=== PATIENT | male | born 1980 | race Caucasian/White ===

== ENCOUNTER → 2017-03-17 16:29 | Outpatient (CLI) | payer BC ==
[2012-03-10 02:51] VITALS: BMI 45.4
== END | disposition home or self-care (01) ==
LOC: D.MRI 16:29
DX: M54.16 Radiculopathy, lumbar region (principal)

== ENCOUNTER 2017-05-03 22:12 | Emergency (ER) | payer MEDICAID ==
[2012-03-10 02:51] VITALS: BMI 45.4
[2017-05-03 22:48] LABS: BASOPHILS 0.3 % (0-2); HEMATOCRIT 38.1 % (42.0-54.0); HEMOGLOBIN 13.5 g/dL (13.5-17.5); IMMATURE GRANULOCYTES 0.2 % (0-5); LYMPHOCYTES 21.7 % (15-50); MCH 28.8 pg (26.0-34.0); MCHC 35.4 g/dL (31.0-37.0); MCV 81.4 fL (80.0-100.0); MEAN PLATELET VOLUME 10.5 fL (7.4-10.4); MONOCYTES 6.1 % (2-11); NEUTROPHILS 69.7 % (40-80); RBC 4.68 10x6/uL (4.20-6.10); RDW 13.3 % (11.5-14.5); WBC 5.9 10x3/uL (4.8-10.8)
[2017-05-03 22:49] LABS: PLATELET COUNT 249 10x3/uL (130-400)
[2017-05-03 23:00] LABS: ALBUMIN 3.6 g/dL (3.4-5.0); ANION GAP 16.6 mmol/L (8-16); BILIRUBIN - TOTAL 0.53 mg/dL (0.2-1.3); CALCIUM 8.7 mg/dL (8.5-10.1); CARBON DIOXIDE 26.5 mmol/L (21.0-32.0); CREATININE - SERUM 1.3 mg/dL (0.6-1.3); POTASSIUM - SERUM 3.1 mmol/L (3.5-5.1)
[2017-05-03 23:52] LABS: APPEARANCE CLEAR (CLEAR); BILIRUBIN NEGATIVE (NEGATIVE); COLOR YELLOW (YELLOW); GLUCOSE NEGATIVE (NEGATIVE); KETONE NEGATIVE (NEGATIVE); LEUKOCYTE ESTERASE TRACE (NEGATIVE); NITRITE NEGATIVE (NEGATIVE); PROTEIN TRACE mg/dL (NEGATIVE); UROBILINOGEN NORMAL (NORMAL)
[2017-05-03 23:54] LABS: BACTERIA FEW /hpf (NONE SEEN); EPITHELIAL CELLS 0-5 /hpf (0-5); RED CELLS - URINE 0-5 /hpf (0-5); WHITE CELLS - URINE 0-5 /hpf (0-5)
[2017-05-03 23:55] LABS: MUCUS >1+ /lpf (NONE SEEN)
== END 2017-05-04 00:12 | disposition home or self-care (01) ==
LOC: D.ER 22:12
PROVIDERS: Family Medicine; Nurse Practitioner Family
DX: R10.9 Unspecified abdominal pain (principal); K59.00 Constipation, unspecified; K50.90 Crohn's disease, unspecified, without complications; F17.200 Nicotine dependence, unspecified, uncomplicated

== ENCOUNTER 2019-03-05 17:17 | Inpatient (IN) | payer MEDICAID ==
[~2019-03-05] VITALS: Ht 180.3 cm; Wt 129.1 kg
--- NOTE | ~2019-03-05 | HEMODYNAMI ---
PATIENT:WM CABAN MEDICAL RECORD: [id number] : 82 [facility] [id number] ADMISSION DATE: 03/05/19 Generatedon:03/07/201910:50 Patient name: WM CABAN Patient #: [id number] SSN : : 1980 Date of study: 03/07/2019 Page: Of Hemodynamic Procedure Report Patient Data Patient Demographics Procedure consent was obtained First Name: WM Gender: Male Last Name: ARSH : 1980 Middle Initial: A Age: 38 year(s) Patient #: [id number] Race: Unknown Additional ID: [id number] Contact details Address: [place] [address] State: [place] City: [facility] Zip code: [address] Admission Admission Data Admission Date: 03/05/2019 Admission Time: 20:57 Room #: [facility] Procedure Procedure Types Cath Procedure Diagnostic Procedure LHC LHC w/Coronaries Procedure Description Procedure Date Procedure Date: 03/07/2019 Procedure Start Time: 10:32 Procedure End Time: 10:47 Procedure Staff Name Function Gilmar Dhillon MD Performing Physician Yasmin Pennington RT Monitor Linda Multani RT Scrub Carolyn Swartz RN Nurse Procedure Data Cath Procedure Fluoroscopy Diagnostic fluoroscopy Total fluoroscopy Time: 1.8 time: 1.8 min min Diagnostic fluoroscopy Total fluoroscopy dose: 581 dose: 581 mGy mGy Contrast Material Contrast Material Type Amount (ml) Isovue 300 51 Entry Location Entry Primary Successful Side Size Upsize Upsize Entry Closure Succes sful Closure Location (Fr) 1 (Fr) 2 (Fr) Remarks Device Remarks Femoral Right 5 Fr Exoseal artery Femoral Right 5 Fr vein Estimated blood loss: 5 ml Diagnostic catheters Device Type Used For End Catheter Placement MULTIPACK JL 4.0 5Fr Left Coronary catheter Angiography MULTIPACK 3DRC 5Fr Right Coronary catheter Angiography MULTIPACK Pigtail 5 Fr LV Angiography catheter Procedure Complications No complications Procedure Medications Medication Administration Route Dosage 0.9% NaCl I.V. 100 ml/hr Oxygen etCO2 Nasal cannula 2 l/min Lidocaine 2% added to field 20 Heparin Flush Bag added to field 2 bags (1000units/500ml NS) Versed I.V. 2 mg Fentanyl I.V. 50 mcg Versed I.V. 2 mg Fentanyl I.V. 50 mcg Hemodynamics Rest Heart Rate: 118 (bpm) Pressure Samples Time Site Value (mmHg) Purpose Heart Use Rate(bpm) 10:41 LV 112/24,44 Snapshot 123 Gradients Valve Time Site Site Mean SEP/DFP Peak To Heart Use 1 2 (mmHg) (sec/min) Peak Rate (mmHg) (bpm) Aortic 10:42 LV AO 126 Snapshots Pre Cath Intra NCS Post Cath Vital Signs Time Heart Resp SPO2 etCO2 NIBP (mmHg) Rhythm Pain Sedation Rate (ipm) (%) (mmHg) Status Level (bpm) 10:24:51 120 26 100 26.2 124/88(109) NSR 0 (11) 10(A) , No pain 10:29:09 114 18 100 36.7 138/98(116) NSR 0 (11) 10(A) , No pain 10:33:33 113 17 98 35.9 137/96(110) NSR 0 (11) 10(A) , No pain 10:37:57 113 13 97 41.2 145/116(133) NSR 0 (11) 9(A) , No pain 10:43:37 123 22 98 38.9 145/116(132) NSR 0 (11) 9(A) , No pain 10:47:59 126 21 97 39.7 134/111(133) NSR 0 (11) 10(A) , No pain Medications Time Medication Route Dose Verified Delivered Reason Notes Eff ectiveness by by 10:22:31 0.9% NaCl I.V. 100 Gilmar Carolyn used for ml/hr Alejo Swartz computer aided design technician 10:22:37 Oxygen etCO2 2 Gilmar Carolyn used for Nasal l/min Alejo Swartz procedure cannula RN 10:22:51 Lidocaine 2% added 20ml Gilmar Gilmar for local to vial Alejo Dhillon MD anesthetic field 10:22:57 Heparin Flush added 2 Gilmar Gilmar used for Bag to bags Alejo Dhillon MD procedure (1000units/500ml field NS) 10:28:58 Versed I.V. 2 mg Gilmar Carolyn for Alejo Swartz sedation RN 10:29:04 Fentanyl I.V. 50 Gilmar Carolyn for mcg Alejo Swartz sedation RN 10:34:19 Versed I.V. 2 mg Gilmar Carolyn for Alejo Swartz sedation RN 10:34:23 Fentanyl I.V. 50 Gilmar Carolyn for mcg Alejo Swartz sedation administration manager Log Time Note 9:58:18 Informed consent obtained and on chart 9:58:24 Diagnostic Cath Status : Elective 9:59:13 Carolyn Swartz RN sent for patient. Start room use. 9:59:14 Time tracking: Regular hours (M-F 7:00 - 5:00) 9:59:19 Plan of Care:Hemodynamics will remain stable., Cardiac rhythm will remain stable., Comfort level will be maintained., Respiratory function will remain adequate., Patient/ family verbilizes understanding of procedure., Procedure tolerated without complication., Recovers from procedure without complications.. 10:15:54 Patient received from Med II to CCL 1 Alert and oriented. Tansferred to table in Supine position. 10:15:55 Warm blankets applied, and orestes hugger turned on for patient comfort. 10:15:56 Correct patient and procedure confirmed by team. 10:15:56 ECG and BP/O2 sat monitors applied to patient. 10:22:22 Vital chart was started 10:22:31 0.9% NaCl 100 ml/hr I.V. was administered by Carolyn Swartz RN; used for procedure; 10:22:37 Oxygen 2 l/min etCO2 Nasal cannula was administered by Carolyn Swartz RN; used for procedure; 10:22:51 Lidocaine 2% 20ml vial added to field was administered by Gilmar Dhillon MD; for local anesthetic; 10:22:57 Heparin Flush Bag (1000units/500ml NS) 2 bags added to field was administered by Gilmar Dhillon MD; used for procedure; 10:23:11 Baseline sample Acquired. 10:24:39 Rhythm: sinus tachycardia 10:24:41 Full Disclosure recording started 10:24:59 H&P Date Dictated: 03/07/2019 New H&P dictated by physician.. 10:25:03 Pre-procedure instructions explained to patient. 10:25:03 Pre-op teaching completed and patient verbalized understanding. 10:25:12 Family in patients room. 10:25:13 Patient NPO since Midnight. 10:25:21 Is the patient allergic to Iodine/contrast media? No. 10:25:22 Was the patient premedicated? No 10:25:57 Is patient on blood thinner?No 10:25:59 Patient diabetic? Unknown. 10:26:03 Previous problem with sedation/anesthesia? No ? 10:26:05 Snore? Yes 10:26:18 Sleep apnea? Yes 10:26:19 Deviated septum? No 10:26:20 Opens mouth fully? Yes 10:26:20 Sticks out tongue? Yes 10:26:24 Airway obstruction? No ? 10:26:27 Dentures? No ? 10:26:34 Pre procedure: right dorsailis pedis pulse 2+ Normal; easily identifiable; not easily obliterated 10:26:36 Pre procedure: left dorsailis pedis pulse 2+ Normal; easily identifiable; not easily obliterated 10:26:46 Patient pain scale 0/10 ?. 10:27:15 IV patent on arrival in left forearm with 0.9% NaCl at [facility]. 10:27:18 Lab results completed and on chart. 10:27:23 Right groin area was prepped with chlora-prep and draped in sterile fashion 10:27:24 Alarms reviewed by R. N. 10:27:24 Sharps counted by scrub and verified by R.N. 10:27:53 Physician arrived 10:27:53 --------ALL STOP TIME OUT------ 10:27:54 Final Timeout: patient, procedure, and site verified with staff and physician. All members of the team are in agreement. 10:27:56 Right groin site verified by team. 10:27:58 Maximum allowable Isovue 300 dose 300ml. Physician notified. (300ml for normal creatinines. For patients with creatinine of 1.7 or higher multiply weight(kg) x 5 divided by creatinine.) 10:28:02 Fire Safety Assessment: A--An alcohol-based skin anteseptic being used preoperatively., C--Open oxygen or nitrous oxide is being used., D--An ESU, laser, or fiber-optic light is being used. 10:28:06 Physical assessment completed. ASA score P 2 - A patient with mild systemic disease as per Gilmar Dhillon MD. 10:28:09 Sedation plan: IV Moderate Sedation Medication:Versed, Fentanyl 10:28:46 Use device set Femoral Dx 10:28:47 ACIST Syringe (63311) opened to sterile field. 10:28:48 Bag Decanter (2002S) opened to sterile field. 10:28:48 Medline Cath Pack ([id number]) opened to sterile field. 10:28:49 DIAGNOSTIC WIRE .035 260cm J wire (905279) opened to sterile field. 10:28:50 ACIST Hand Control (72450) opened to sterile field. 10:28:50 ACIST Manifold (19977) opened to sterile field. 10:28:51 DIAGNOSTIC Multipack 5Fr catheter set ([id number]) opened to sterile field. 10:28:51 Tegaderm 4 x 4 (1626W) opened to sterile field. 10:28:53 SHEATH 5FR Driggs (YKD017) opened to sterile field. 10:28:58 Versed 2 mg I.V. was administered by Carolyn Swartz RN; for sedation; 10:29:04 Fentanyl 50 mcg I.V. was administered by Carolyn Swartz RN; for sedation; 10:32:22 Procedure started. 10:32:29 Local anesthetic to right femoral artery with Lidocaine 2% by Gilmar Dhillon MD.INITIAL ACCESS ONLY 10:32:44 A 5 Fr sheath was inserted into the Right Femoral artery 10:34:19 Versed 2 mg I.V. was administered by Carolyn Swartz RN; for sedation; 10:34:23 Fentanyl 50 mcg I.V. was administered by Carolyn Swartz RN; for sedation; 10:35:18 SHEATH 5FR Driggs (WPV429) opened to sterile field. 10:35:38 A 5 Fr sheath was inserted into the Right Femoral vein 10:36:47 A MULTIPACK JL 4.0 5Fr catheter was advanced over the wire and used for Left Coronary Angiography. 10:38:11 LCA angiography performed. 10:38:15 Injector settings: Ml/sec: 3, Volume: 6, 10:38:56 Catheter removed. 10:39:05 A MULTIPACK 3DRC 5Fr catheter was advanced over the wire and used for Right Coronary Angiography. 10:40:30 RCA angiography performed. 10:40:33 Injector settings: Ml/sec: 3, Volume: 6, 10:40:44 Catheter removed. 10:40:51 A MULTIPACK Pigtail 5 Fr catheter was advanced over the wire and used for LV Angiography. 10:41:57 LV hemodynamics recorded. 10:42:31 LV gram done using RODRÍGUEZ 10:42:37 Injector settings: Ml/sec: 45, Volume: ?, 10:42:39 Injector settings: Ml/sec: 5, Volume: 15, 10:42:47 EF : 10 % 10:42:51 Catheter removed. 10:43:05 EXOSEAL 5Fr (EX500) opened to sterile field. 10:44:08 Sheath removed intact; hemostasis achieved with Exoseal to the Right Femoral artery. 10:44:59 Procedure ended.(Physican Out) 10:45:49 Fluoroscopy time 01.80 minutes. 10:45:55 Fluoroscopy dose: 581 mGy 10:45:55 Flurop Dose total: 581 10:45:59 Contrast amount:Isovue 300 51ml. 10:46:02 Sharps counted by scrub and verified by R.N. 10:46:03 Insertion/operative site no bleeding no hematoma. 10:46:07 Post-op/insertion site Right Femoral artery dressed using a 4 x 4 and Tegaderm. 10:46:11 Post Procedure Pulses reassessed and unchanged 10:46:14 Post procedure rhythm: unchanged. 10:46:17 Estimated blood loss: 5 ml 10:46:19 Post procedure instruction explained to patient.Patient verbalizes understanding. 10:46:20 Patient needs reinforcement of post procedure teaching. 10:46:29 Procedure and supply charges have been captured, reviewed, submitted and are correct. 10:47:09 Procedure Complication : No complications 10:47:15 Vital chart was stopped 10:47:16 See physician's report for complete and final results. 10:47:21 Report given to [facility]. 10:47:23 Patient transfered to [facility] with Stretcher. 10:47:25 Procedure ended. 10:47:25 Full Disclosure recording stopped 10:47:28 End room use (Document Last) Device Usage Item Name Manufacture Quantity Catalog Hospital Part Current Minimal L ot# / Number Charge Number Stock Stock Serial# Code ACIST Acist 1 10471 072842 085639 727625 20 Syringe Medical (48592) Systems Inc Bag Microtek 1 2001S 852753 77407 878499 5 Decanter Medical Inc. () Medline Medline 1 [id number] 379450 05076 940393 5 Cath Pack ([id number]) DIAGNOSTIC St Edd 1 527022 583093 598361 427954 30 WIRE .035 260cm J wire (473338) ACIST Hand Acist 1 02070 166808 190571 417918 5 Control Medical (08606) Systems Inc ACIST Acist 1 92928 165112 402988 834029 5 Manifold Medical (00125) Systems Inc DIAGNOSTIC Cardinal 1 [id number] 660646 76271 568651 30 Multipack Health 5Fr catheter set (GH0972) Tegaderm 4 3M 1 1626W 159683 630363 020573 5 x 4 (1626W) SHEATH 5FR Terumo 2 [id number] 340172 736839 685939 5 Driggs (FMU960) MULTIPACK Cardinal 1 577896 5 JL 4.0 5Fr Health catheter MULTIPACK Cardinal 1 084526 5 3DRC 5Fr Health catheter MULTIPACK Cardinal 1 196083 5 Pigtail 5 Health Fr catheter EXOSEAL 5Fr Cardinal 1 EX500 886620 377914 572382 10 (EX500) Health Signature Audit [place] Stage Time Signature Unsigned Intra-Procedure 03/07/2019 Yasmin Pennington 10:50:24 AM RT(R) Signatures Monitor : Yasmin Pennington RT Signature : Date : Time : [facility] [address] [place] [address]
[2019-03-05 17:43] VITALS: BP 124/77
[2019-03-05 18:16] LABS: BASOPHILS 0.6 % (0-2); EOSINOPHILS 3.4 % (0-7); HEMATOCRIT 33.4 % (42.0-54.0); HEMOGLOBIN 11.1 g/dL (13.5-17.5); IMMATURE GRANULOCYTES 0.5 % (0-5); LYMPHOCYTES 25.4 % (15-50); MCH 25.1 pg (26.0-34.0); MCHC 33.2 g/dL (31.0-37.0); MCV 75.4 fL (80.0-100.0); MEAN PLATELET VOLUME 9.7 fL (7.4-10.4); MONOCYTES 7.4 % (2-11); NEUTROPHILS 62.7 % (40-80); PLATELET COUNT 289 10x3/uL (130-400); RBC 4.43 10x6/uL (4.20-6.10); RDW 13.8 % (11.5-14.5); WBC 8.4 10x3/uL (4.8-10.8)
[2019-03-05 18:35] LABS: ALBUMIN 2.8 g/dL (3.4-5.0); ANION GAP 15.5 mmol/L (8-16); BILIRUBIN - TOTAL 1.03 mg/dL (0.2-1.3); CALCIUM 7.9 mg/dL (8.5-10.1); CARBON DIOXIDE 23.7 mmol/L (21.0-32.0); CREATININE - SERUM 1.3 mg/dL (0.6-1.3); POTASSIUM - SERUM 3.2 mmol/L (3.5-5.1); PROTEIN - SERUM 6.4 g/dL (6.4-8.2)
[2019-03-05 18:48] LABS: MAGNESIUM - SERUM 1.1 mg/dL (1.8-2.4); THYROID STIMULATING HORMONE 2.52 uIU/mL (0.36-3.74)
--- NOTE | 2019-03-05 19:01 | NUR ---
HAND OFF REPORT GIVEN TO ANGELO WHITTAKER
[2019-03-05 19:08] LABS: TROPONIN-I 0.267 ng/mL (0.000-0.060)
[2019-03-05 20:18] LABS: APPEARANCE CLEAR (CLEAR); BILIRUBIN NEGATIVE (NEGATIVE); COLOR YELLOW (YELLOW); GLUCOSE NEGATIVE (NEGATIVE); KETONE NEGATIVE (NEGATIVE); NITRITE NEGATIVE (NEGATIVE); PROTEIN NEGATIVE (NEGATIVE); SPECIFIC GRAVITY 1.015 (1.005-1.020); UROBILINOGEN NORMAL (NORMAL)
[2019-03-05 20:19] LABS: BACTERIA FEW /hpf (NONE SEEN)
[2019-03-05 20:27] LABS: UDS - AMPHET POSITIVE QUAL (NEGATIVE); UDS - BARB NEGATIVE QUAL (NEGATIVE); UDS - BENZO NEGATIVE QUAL (NEGATIVE); UDS - COCAINE POSITIVE QUAL (NEGATIVE); UDS - OPIATE NEGATIVE QUAL (NEGATIVE); UDS - PCP NEGATIVE QUAL (NEGATIVE); UDS - THC NEGATIVE QUAL (NEGATIVE)
[2019-03-05 20:33] VITALS: BP 118/73
--- NOTE | 2019-03-05 20:43 | NUR ---
PT RESTING, FAMILY AT BEDSIDE. PT RECIEVING ORDERED MAG/KCL FLUIDS. PT HAS NO NEEDS AT THIS TIME. RESPIRATIONS EVEN AND UNLABORED. WILL CONTINUE TO MONITOR.
--- NOTE | 2019-03-05 22:45 | NUR ---
RECEIVED PT VIA STRECTHER BY ER STAFF. PT IS ALERTX4. FAMILY AT BEDSIDE. NO ACUTE S/S OF DISTRESS NOTED. BED IN LOW POSITION WITH CALL LIGHT IN REACH. WILL CONTINUE TO MONITOR PT AND FOLLOW PLAN OF CARE.
[2019-03-06] VITALS (7 sets, daily range): BP systolic 113–138; BP diastolic 66–77
--- NOTE | 2019-03-06 03:46 | NUR ---
I have reviewed this patient and I concur with the Shift Assessment completed by the Licensed Practical Nurse today this shift.
[2019-03-06 07:28] LABS: BASOPHILS 0.6 % (0-2); EOSINOPHILS 3.6 % (0-7); HEMATOCRIT 37.7 % (42.0-54.0); HEMOGLOBIN 12.3 g/dL (13.5-17.5); IMMATURE GRANULOCYTES 0.3 % (0-5); LYMPHOCYTES 25.6 % (15-50); MCH 25.1 pg (26.0-34.0); MCHC 32.6 g/dL (31.0-37.0); MCV 76.8 fL (80.0-100.0); MEAN PLATELET VOLUME 9.8 fL (7.4-10.4); MONOCYTES 5.1 % (2-11); NEUTROPHILS 64.8 % (40-80); PLATELET COUNT 334 10x3/uL (130-400); RBC 4.91 10x6/uL (4.20-6.10); RDW 14.1 % (11.5-14.5); WBC 9.7 10x3/uL (4.8-10.8)
[2019-03-06 08:05] LABS: CALC OSMOLALITY 276 mosm/kg (275-300); CALCIUM 7.6 mg/dL (8.5-10.1); CHLORIDE - SERUM 104 mmol/L (98-107); CKMB 5.4 U/L (0.0-3.6); CREATINE KINASE 324 UL (21-232); CREATININE - SERUM 1.2 mg/dL (0.6-1.3); GLUCOSE 124 mg/dL (74-106); MAGNESIUM - SERUM 2.8 mg/dL (1.8-2.4); POTASSIUM - SERUM 3.6 mmol/L (3.5-5.1); PRO BNP 2074 pg/mL (0-125); SODIUM 138 mmol/L (136-145); TROPONIN-I 0.269 ng/mL (0.000-0.060); UREA NITROGEN 13 mg/dL (7-18); eGFR NON AFRICAN AMERICAN 72 mL/min (90-120)
--- NOTE | 2019-03-06 09:42 | NUR ---
PT RESTING IN BED. NO SIGNS OF DISTRESS. IT TO LEFT AC PATENT NO REDNESS OR TENDERNESS. ON TELEMETRY 113. DENIES ANY NEED AT THIS TIME. CALL LIGHT IN REACH. BED LOW POSITION. FAMILY AT BEDSIDE AT THIS TIME.
--- NOTE | 2019-03-06 10:18 | NUR ---
I have reviewed this patient and I concur with the Shift Assessment completed by the Licensed Practical Nurse today this shift.
--- NOTE | 2019-03-06 19:22 | NUR ---
PT LAYING IN BED SNORING. KCL 40MEQ +NS AND MAG 4GM INFUSING AT 250 ORDERED. NURSE UNHOOKED PT. MORNING LAB VALUES AT 0719 MAGNESIUM 2.8 AND POTASSIUM 3.6 PT PRO BNP IS 2073 HISTORY OF CHF. PT HAS HAD FLUIDS INFUSING ALL DAY. NURSE S/L PT, WILL TELL KYLAH REES WHEN SPEAKING WITH HER. PT DENIES ANY NEEDS. NO S/S OF DISTRESS. WILL CPOC
--- NOTE | 2019-03-06 20:03 | NUR ---
SPOKE WITH KYLAH REGARDING FLUIDS THAT HAVE BEEN INFUSING ALL DAY. KYLAH STATED D/C FLUIDS AND ORDER PRO BNP, MAG AND BMP PLACED ORDERS
--- NOTE | 2019-03-06 22:33 | NUR ---
EDUCATED PT IN LASIX. PT VERBALIZED UNDERSTANDING. SPOKE WITH PT ABOUT CHF, AND THE POTASSIUM AND MAG NEEDING TO BE RECHECKED. PT VERBLAIZED UNDERSTANDING. PT STATES WITH HIS CHRONNS HE ALWAYS HAS A BM AFTER HE EATS AND HAS NOT HAD A BM SINCE ADMIT. BOWEL SOUNDS ACTIVE. PT HAS NO S/S OF DISTRESS. WILL CPOC
--- NOTE | 2019-03-07 00:05 | NUR ---
PT ASLEEP. RESP UNLABORED, RATE UNEVEN. 2L O2 NC. PT SNORING LOUDLY WITH MOUTH OPEN. NO S/S OF DISTRESS. REMOVED DRINKS FROM BEDSIDE. BEDLOW AND CALL LIGHT IN REACH. WILL CPOC
[2019-03-07 00:39] LABS: ANION GAP 11.9 mmol/L (8-16); CALCIUM 7.6 mg/dL (8.5-10.1); CARBON DIOXIDE 25.9 mmol/L (21.0-32.0); CREATININE - SERUM 1.2 mg/dL (0.6-1.3); MAGNESIUM - SERUM 2.4 mg/dL (1.8-2.4); POTASSIUM - SERUM 3.8 mmol/L (3.5-5.1)
[2019-03-07 05:20] VITALS: BP 120/66
[2019-03-07 05:53] LABS: BASOPHILS 0.6 % (0-2); EOSINOPHILS 3.8 % (0-7); HEMATOCRIT 38.5 % (42.0-54.0); HEMOGLOBIN 12.6 g/dL (13.5-17.5); IMMATURE GRANULOCYTES 0.7 % (0-5); LYMPHOCYTES 21.4 % (15-50); MCHC 32.7 g/dL (31.0-37.0); MCV 76.4 fL (80.0-100.0); MEAN PLATELET VOLUME 10.1 fL (7.4-10.4); MONOCYTES 7.1 % (2-11); NEUTROPHILS 66.4 % (40-80); PLATELET COUNT 322 10x3/uL (130-400); RBC 5.04 10x6/uL (4.20-6.10); RDW 14.1 % (11.5-14.5)
[2019-03-07 06:11] LABS: ALBUMIN 2.9 g/dL (3.4-5.0); ANION GAP 14.3 mmol/L (8-16); BILIRUBIN - TOTAL 0.77 mg/dL (0.2-1.3); CALCIUM 7.7 mg/dL (8.5-10.1); CARBON DIOXIDE 27.4 mmol/L (21.0-32.0); CREATININE - SERUM 1.2 mg/dL (0.6-1.3); MAGNESIUM - SERUM 2.3 mg/dL (1.8-2.4); POTASSIUM - SERUM 3.7 mmol/L (3.5-5.1); PROTEIN - SERUM 7.2 g/dL (6.4-8.2)
--- NOTE | 2019-03-07 06:33 | NUR ---
PT HAS BEEN NPO SINCE MIDNIGHT. PT HAS NO S/S OF DISTRESS. DECLINES LASIX. DOESNT WANT TO URINATE ON TABLE DURING HEART CATH. PT DENIES ANY NEEDS. NO S/S OF DISTRESS. WILL CPOC
[2019-03-07 08:00] VITALS: BP 127/75
[2019-03-07] MEDS ORDERED: K-DUR20 MEQ PO (12:19)
[2019-03-07] MEDS ORDERED: LASIX40 MG PO (12:19)
--- NOTE | 2019-03-07 12:34 | NUR ---
I have reviewed this patient and I concur with the Shift Assessment completed by the Licensed Practical Nurse today this shift.
[2019-03-07 12:38] VITALS: BP 132/68
[2019-03-07] MEDS ORDERED: ENTRESTO 24 MG1 EACH PO (13:18)
--- NOTE | 2019-03-07 13:38 | MORECARE ---
CASE MANAGEMENT DISCHARGE SUMMARY PATIENT: WM CABAN UNIT: [id number] ADM DATE: 03/05/19 AGE: 38 : [birth year] SEX: M ROOM/BED: D.2131 AUTHOR: CAITLIN MIDDLETON PHYSICIAN: REFERRING PHYSICIAN: MONICA MEADOWS MD DATE OF SERVICE: 03/07/19 Discharge Plan Patient Name: WM CABAN Facility: [facility]:[place] : 1980 Planned Disposition: Home Anticipated Discharge Date: 03/07/19 Discharge Date: Expected LOS: 2 Initial Reviewer: [email or web address] Initial Review Date: 03/07/2019 Generated: 03/07/19 2:37 pm Comments DCP- Discharge Planning Updated by [id number]: Alfredo Bishop on 03/07/19 12:[address] Patient Name: WM CABAN Admission Status: ER Accout number: [id number] Admission Date: 03-05-2019 : 1980 Admission Diagnosis:SHORTNESS OF BREATH Attending: TIFFANY MEADOWS Current LOS: 2 Anticipated DC Date: 03-07-2019 Planned Disposition: Home Primary Insurance: [place]ID [place] Discharge Planning Comments: CM MET WITH PT IN ROOM TO DISCUSS DISCHARGE PLANNING AND NEEDS. PT REPORTS LIVING AT HOME INDEPENDENTLY AND ALONE; PT REPORTS THAT HIS GIRLFRIEND STAYS WIT HIM SOMETIMES AND SOMETIMES ANOTHER FRIEND STAYS THERE TOO. PT HAS NO MEDICAL EQUIPMENT AND NO OUTSIDE SERVICES ASSISTING IN THE HOME. CM DISCUSSED AVAILABILITY OF HOME HEALTH, REHAB SERVICES AND MEDICAL EQUIPMENT. PT DENIES DISCHARGE NEEDS, REPORTS HIS EX WILL PICK HIM UP FOR DISCHARGE HOME. Indian Blanket Weaver: Alfredo Bishop DCPIA - Discharge Planning Initial Assessment Updated by [email or web address]: Alfredo Bishop on 03/07/19 1:35 pm * Is the patient Alert and Oriented? Yes * How many steps to enter\exit or inside your home? * PCP DR. FINNEGAN * Pharmacy [facility] * Preadmission Environment Home Alone * ADLs Independent * Equipment None * Other Equipment NO MEDICAL EQUIPMENT PROVIDER PREFERENCE * List name and contact numbers for known caregivers / representatives who currently or will assist patient after discharge: TANYA CABAN, EX SPOUSE, * Verbal permission to speak to the caregivers and representatives has been obtained from the patient. N/A * Community resources currently utilized None * Please name any agencies selected above. NONE * Additional services required to return to the preadmission environment? No * Can the patient safely return to the preadmission environment? Yes * Has this patient been hospitalized within the prior 30 days at any hospital? No Patient Name: WM CABAN Page [phone] at 1338 All edits/amendments must be made on the electronic document DICTATION DATE: 03/07/191336 WHITE METAL CORROSION PROOFER: JASMEET 03/07/191336 RPT#: [id number] DC DATE: STATUS: ADM IN [facility] [address] [place] [address] END OF REPORT
[2019-03-07 14:13] VITALS: Ht 180.3 cm; Wt 129.1 kg
[2019-03-07 16:30] VITALS: BP 132/68
== END 2019-03-07 17:36 | disposition home or self-care (01) | DRG 287 ==
LOC: D.ER 17:17 → D.M2 20:57
PROVIDERS: Family Medicine; Internal Medicine Cardiovascular Disease; ADMIT Emergency Medicine; ATTEND Emergency Medicine
PROC: B2151ZZ Fluoroscopy of Left Heart using Low Osmolar Contrast (ICD-10-PCS; 2019-03-07)
PROC: 4A023N7 Measurement of Cardiac Sampling and Pressure, Left Heart, Percutaneous Approach (ICD-10-PCS; 2019-03-07)
PROC: B2111ZZ Fluoroscopy of Multiple Coronary Arteries using Low Osmolar Contrast (ICD-10-PCS; principal; 2019-03-07 09:59)
DX: I50.9 Heart failure, unspecified (principal); I24.8 Other forms of acute ischemic heart disease; I42.9 Cardiomyopathy, unspecified; R79.89 Other specified abnormal findings of blood chemistry; F15.10 Other stimulant abuse, uncomplicated; F14.10 Cocaine abuse, uncomplicated; E87.6 Hypokalemia; E83.42 Hypomagnesemia

== ENCOUNTER 2019-04-13 21:46 | Emergency (ER) | payer MEDICAID ==
[~2019-04-13 21:46] MED LIST: ENTRESTO 24 MG1 EACH PO; K-DUR20 MEQ PO; LASIX40 MG PO
[2019-04-13 21:59] VITALS: Ht 180.3 cm
[2019-04-13 22:03] LABS: BASOPHILS 0.2 % (0-2); EOSINOPHILS 2.3 % (0-7); HEMATOCRIT 33.6 % (42.0-54.0); HEMOGLOBIN 10.6 g/dL (13.5-17.5); IMMATURE GRANULOCYTES 0.2 % (0-5); LYMPHOCYTES 21.1 % (15-50); MCH 22.7 pg (26.0-34.0); MCHC 31.5 g/dL (31.0-37.0); MCV 71.9 fL (80.0-100.0); MEAN PLATELET VOLUME 9.6 fL (7.4-10.4); MONOCYTES 6.3 % (2-11); NEUTROPHILS 69.9 % (40-80); PLATELET COUNT 386 10x3/uL (130-400); RBC 4.67 10x6/uL (4.20-6.10); RDW 13.9 % (11.5-14.5); WBC 8.2 10x3/uL (4.8-10.8)
[2019-04-13 22:15] LABS: APTT 29.1 SECONDS (22.8-39.4); INR 1.2 (0.85-1.17); PROTIME 14.7 SECONDS (11.6-15.0)
[2019-04-13 22:29] LABS: ALBUMIN 2.8 g/dL (3.4-5.0); ALKALINE PHOSPHATASE 186 U/L (46-116); ALT (SGPT) 42 U/L (10-68); BILIRUBIN - TOTAL 1.01 mg/dL (0.2-1.3); CALC OSMOLALITY 277 mosm/kg (275-300); CALCIUM 8.4 mg/dL (8.5-10.1); CHLORIDE - SERUM 101 mmol/L (98-107); CREATININE - SERUM 1.2 mg/dL (0.6-1.3); GLUCOSE 135 mg/dL (74-106); POTASSIUM - SERUM 3.3 mmol/L (3.5-5.1); PROTEIN - SERUM 6.7 g/dL (6.4-8.2); SODIUM 138 mmol/L (136-145); UREA NITROGEN 12 mg/dL (7-18); eGFR NON AFRICAN AMERICAN 72 mL/min (90-120)
[2019-04-13 22:48] LABS: CKMB 3.3 U/L (0.0-3.6); CREATINE KINASE 189 UL (21-232); MAGNESIUM - SERUM 1.4 mg/dL (1.8-2.4); PRO BNP 1965 pg/mL (0-125)
[2019-04-13 22:52] LABS: TROPONIN-I 0.128 ng/mL (0.000-0.060)
[2019-04-13 22:55] LABS: APPEARANCE CLEAR (CLEAR); BILIRUBIN NEGATIVE (NEGATIVE); COLOR YELLOW (YELLOW); GLUCOSE NEGATIVE (NEGATIVE); KETONE NEGATIVE (NEGATIVE); NITRITE NEGATIVE (NEGATIVE); PROTEIN NEGATIVE (NEGATIVE); SPECIFIC GRAVITY 1.015 (1.005-1.020); UROBILINOGEN NORMAL (NORMAL)
[2019-04-13 23:00] LABS: UDS - AMPHET NEGATIVE QUAL (NEGATIVE); UDS - BARB NEGATIVE QUAL (NEGATIVE); UDS - BENZO NEGATIVE QUAL (NEGATIVE); UDS - COCAINE NEGATIVE QUAL (NEGATIVE); UDS - OPIATE POSITIVE QUAL (NEGATIVE); UDS - PCP NEGATIVE QUAL (NEGATIVE); UDS - THC NEGATIVE QUAL (NEGATIVE)
[2019-04-14 00:05] VITALS: BP 120/75
== END 2019-04-14 00:05 | disposition home or self-care (01) ==
LOC: D.ER 21:46
PROVIDERS: Family Medicine
DX: I50.9 Heart failure, unspecified (principal); F11.90 Opioid use, unspecified, uncomplicated; Z91.14 Patient's other noncompliance with medication regimen; R94.31 Abnormal electrocardiogram [ECG] [EKG]; R00.0 Tachycardia, unspecified

== ENCOUNTER 2019-04-18 23:56 | Inpatient (IN) | payer MEDICAID ==
[~2019-04-18] VITALS: Ht 180.3 cm; Wt 120.7 kg
[2019-04-19 00:52] LABS: BASOPHILS 0.4 % (0-2); EOSINOPHILS 1.6 % (0-7); HEMATOCRIT 32.1 % (42.0-54.0); HEMOGLOBIN 10.1 g/dL (13.5-17.5); IMMATURE GRANULOCYTES 0.2 % (0-5); LYMPHOCYTES 15.5 % (15-50); MCH 22.2 pg (26.0-34.0); MCHC 31.5 g/dL (31.0-37.0); MCV 70.5 fL (80.0-100.0); MEAN PLATELET VOLUME 9.3 fL (7.4-10.4); MONOCYTES 5.9 % (2-11); NEUTROPHILS 76.4 % (40-80); PLATELET COUNT 442 10x3/uL (130-400); RBC 4.55 10x6/uL (4.20-6.10); RDW 14.1 % (11.5-14.5)
[2019-04-19 01:11] LABS: ALBUMIN 2.9 g/dL (3.4-5.0); BILIRUBIN - TOTAL 0.95 mg/dL (0.2-1.3); CARBON DIOXIDE 26.6 mmol/L (21.0-32.0); CREATININE - SERUM 1.2 mg/dL (0.6-1.3); PROTEIN - SERUM 6.6 g/dL (6.4-8.2)
[2019-04-19 01:13] LABS: ANION GAP 14.3 mmol/L (8-16)
[2019-04-19 01:21] LABS: POTASSIUM - SERUM 2.9 mmol/L (3.5-5.1); TROPONIN-I 0.328 ng/mL (0.000-0.060)
--- NOTE | 2019-04-19 02:43 | NUR ---
RECIEVED TO ROOM 2123 FROM ER VIA . PT A&O. RESPERATIONS EVEN ON RA. VITALS STABLE. IV TO LEFT ARM SL, SITE CLEAN AND DRY. PLACED ON TELEMETRY, 113 ST. HISTORY AND MED REC OBTAINED. FAMILY AT BED SIDE. PT CURRENTLY DENIES PAIN OR NEEDS. BED LOW, CL IN REACH.
[2019-04-19 03:47] VITALS: BP 106/68; BMI 36.9
--- NOTE | 2019-04-19 08:00 | NUR ---
PT MOANING AND GROANING STATING, "WHAT HAVE Y'ALL DONE TO ME? I AM HURTING SO BAD." PT UNABLE TO POINT OUT WHERE PAIN IS COMING FROM. STATES, "ALL OVER." PT THEN BEGAIN STATING HE CAN NOT BREATHE. LUNGS CLEAR BILATERALLY ALL LOBES. O2 SAT 100% ON 2L NC. ADVISED PT THAT NURSE WILL PAGE ILCHA. KYLAH HURT PAGED. WILL CONT TO FOLLOW POC
[2019-04-19 08:12] VITALS: BP 126/75
--- NOTE | 2019-04-19 09:07 | NUR ---
NO ANSWER FROM KYLAH, PAGED KYLAH HURT AGAIN
[2019-04-19 11:02] VITALS: BP 132/89
--- NOTE | 2019-04-19 12:18 | NUR ---
PIV TO PT LEFT AC INFILTRATED, REMOVED WITH CATHETER TIP INTACT. 20G INSERTED TO PT LEFT FA X1 ATTEMPT. PT TOLERATED WELL
--- NOTE | 2019-04-19 14:39 | NUR ---
PT COMPLAINING OF CHEST PAIN. EKG PERFORMED, ST WITH NO ST ELEVATION NOTED. PAGED
[2019-04-19 15:43] VITALS: BP 125/93
[2019-04-19 18:07] LABS: UDS - AMPHET NEGATIVE QUAL (NEGATIVE); UDS - BARB NEGATIVE QUAL (NEGATIVE); UDS - BENZO NEGATIVE QUAL (NEGATIVE); UDS - COCAINE NEGATIVE QUAL (NEGATIVE); UDS - OPIATE POSITIVE QUAL (NEGATIVE); UDS - PCP NEGATIVE QUAL (NEGATIVE); UDS - THC NEGATIVE QUAL (NEGATIVE)
--- NOTE | 2019-04-19 18:24 | NUR ---
PT CALLED NURSE INTO ROOM, PT URINE WAS STRAW COLORED BUT THERE WERE BRIGHT RED DROPS OF BLOOD ON THE TOILET. PT STARTED SCREAMING AT NURSE "WHAT IS WRONG WITH ME?" ADVISED PT THAT NURSE WOULD CONTACT LICHA. PAGED KYLAH HURT AND NO CALL BACK. PAGED SHARON HURT AND HE ADVISED NURSE TO CONSULT . PAGED AND HE ORDERED A UA AND A BLADDER SCAN. NURSE WENT IN PT ROOM TO PERFORM BLADDER SCAN AND PT HAD 780ML IN HIS BLADDER. PT STATES HE REALLY NEEDED TO URINATE. ADVISED PT TO URINATE AND THEN NURSE WILL REPEAT THE BLADDER SCAN. NURSE STEPPED OUT OF PT ROOM AND SAT BACK AT NURSES STATION. SUDDENLY PT STARTED SCREAMING OUT, "OH GOD IT HURTS!" AND MOANING. NURSE WENT INTO PT ROOM AND OBSERVED PT LAYING IN BED ROLLING AROUND MOANING AND SCREAMING OUT IN PAIN, WHEN ASKED WHERE HE HURT PT STATES, "IT HURTS EVERYWHERE!" CALLED SHARON HURT AND ASKED HIM TO COME TO PT ROOM. NEW ORDERS RECIEVED TO GIVE ATIVAN 1MG NOW AND TO OBTAIN STAT BMP. OBTAINED ATIVAN AND GIVEN TO PT. PT THEN ALLOWED NURSE TO FINISH BLADDER SCAN. PT HAD 70ML IN HIS BLADDER. NURSE CALLED LAB AND MADE THEM AWARE OF STAT BMP
--- NOTE | 2019-04-19 19:08 | NUR ---
RECIEVED UP IN BED YELLING OUT. ENTERED THE ROOM AND HAD EYES CLOSED AND TURNED TOWARDS THE WINDOW. THIS NURSE SAID HEY HEY. HE LOOKED AT THIS NURSE AND SAID " SAYING ABIGAIL ABIGAIL IS NOT GOING TO MAKE ME QUIT YELLING". THIS NURSE LEFT THE ROOM. IV TO LEFT FA WITH DOBUTAMINE AT 18CC/HR AND BUMEX AT 10CC/HR. TELEMETRY IN PLACE.
[2019-04-19 19:16] LABS: ANION GAP 13.9 mmol/L (8-16); CALCIUM 7.8 mg/dL (8.5-10.1); CARBON DIOXIDE 30.1 mmol/L (21.0-32.0); CREATININE - SERUM 1.4 mg/dL (0.6-1.3)
[2019-04-19 20:25] VITALS: BP 124/75
[2019-04-20 00:37] VITALS: BP 114/68
[2019-04-20 03:47] VITALS: BP 109/72
[2019-04-20 06:33] LABS: BASOPHILS 0.2 % (0-2); EOSINOPHILS 0.6 % (0-7); HEMATOCRIT 34.7 % (42.0-54.0); IMMATURE GRANULOCYTES 0.2 % (0-5); LYMPHOCYTES 8.4 % (15-50); MCHC 31.7 g/dL (31.0-37.0); MCV 69.5 fL (80.0-100.0); MEAN PLATELET VOLUME 9.6 fL (7.4-10.4); MONOCYTES 6.8 % (2-11); NEUTROPHILS 83.8 % (40-80); PLATELET COUNT 392 10x3/uL (130-400); RBC 4.99 10x6/uL (4.20-6.10); RDW 14.2 % (11.5-14.5); WBC 8.1 10x3/uL (4.8-10.8)
[2019-04-20 06:46] LABS: ALBUMIN 3.5 g/dL (3.4-5.0); BILIRUBIN - TOTAL 2.24 mg/dL (0.2-1.3); CARBON DIOXIDE 34.1 mmol/L (21.0-32.0); CREATININE - SERUM 1.3 mg/dL (0.6-1.3); MAGNESIUM - SERUM 1.2 mg/dL (1.8-2.4); PHOSPHOROUS 4.6 mg/dL (2.5-4.9); PROTEIN - SERUM 7.8 g/dL (6.4-8.2)
[2019-04-20 06:47] LABS: ANION GAP 11.5 mmol/L (8-16); POTASSIUM - SERUM 2.6 mmol/L (3.5-5.1)
[2019-04-20 08:43] VITALS: BP 137/83
--- NOTE | 2019-04-20 09:09 | NUR ---
NURSE WENT INTO PT ROOM TO GIVE HIM AM POTASSIUM AND HIS EP POTASSIUM. PT STARTED YELLING AT NURSE STATING, "NO! EVERYTIME I TAKE THE POTASSIUM I START CRAMPING! YOU ARE ALL JUST TRYING TO KILL ME." NURSE ADVISED PT THAT WE CAN RUN IV POTASSIUM BUT SINCE HE HAS THE 2 DRIPS GOING WE WOULD HAVE TO START A NEW IV. PT YELLED, "LADY, YOU WOULD HAVE TO KNOCK ME OUT TO DO THAT." ADVISED PT THAT POTASSIUM IS A MAJOR ELECTROLYTE AND WE NEED TO FIGURE OUT SOMETHING. PT CONTINUED YELLING, "NO! ALL Y'ALL HAVE DONE IS MADE ME HURT! I AM NOT TAKING IT!" NURSE LEFT ROOM. HERE ON THE FLOOR ROUNDING, ASKED IF HE WOULD TALK WITH PT.
--- NOTE | 2019-04-20 09:20 | NUR ---
PT GIRLFRIEND CAME OUT TO NURSES STATION AND TOLD NURSE THAT SHE TALKED PT INTO TAKING THE ORAL POTASSIUM. PT TOOK THE PO POTASSIUM
--- NOTE | 2019-04-20 12:20 | NUR ---
PT RESTING IN BED, AT BEDSIDE, DENIES ANY NEEDS AT THIS TIME, WILL CONT TO FOLLOW POC
[2019-04-20 12:24] VITALS: BP 124/76
[2019-04-20 14:13] LABS: APPEARANCE CLEAR (CLEAR); BILIRUBIN NEGATIVE (NEGATIVE); COLOR YELLOW (YELLOW); GLUCOSE NEGATIVE (NEGATIVE); KETONE NEGATIVE (NEGATIVE); NITRITE NEGATIVE (NEGATIVE); PROTEIN NEGATIVE (NEGATIVE); SPECIFIC GRAVITY 1.005 (1.005-1.020); UROBILINOGEN NORMAL (NORMAL)
--- NOTE | 2019-04-20 15:25 | NUR ---
PIV TO PT LEFT FA INFILTRATED, REMOVED WITH CATHETER TIP INTACT. PT REFUSING TO ALLOW NURSE TO INSERT NEW PIV. NOTIFIED KYLAH HURT
--- NOTE | 2019-04-20 16:19 | NUR ---
20 GUAGE INSERTED TO SEEMA X1 STICK.
--- NOTE | 2019-04-20 16:37 | NUR ---
CATH LABORATORY TECHNICIAN REPORTS LOW BP. MANUAL BP IS 82/52. NOTIFIED KYLAH HURT, ORDER RECIEVED TO RUN 500ML NS BOLUS. 20G PIV INSERTED X1 ATTEMPT TO PT RIGHT FA AND NS HOOKED TO IV. PT TOLERATED WELL. WILL CONT TO FOLLOW POC
--- NOTE | 2019-04-20 20:02 | NUR ---
RECIEVED SITTING UP IN BED. ALERT AND ORIENTED X4. UP AD DESIREE. STATES " I'M FEELING MUCH BETTER". IV TO LEFT FA SL.. TELEMETRY IN PLACE.DENIES ANY NEEDS AT THIS TIME.
[2019-04-20 20:20] VITALS: BP 119/89
[2019-04-21 00:02] VITALS: BP 110/78
[2019-04-21 03:50] VITALS: BP 97/53
[2019-04-21 05:19] LABS: BASOPHILS 0.2 % (0-2); EOSINOPHILS 2.1 % (0-7); HEMATOCRIT 31.5 % (42.0-54.0); HEMOGLOBIN 10.1 g/dL (13.5-17.5); IMMATURE GRANULOCYTES 0.4 % (0-5); LYMPHOCYTES 12.9 % (15-50); MCH 22.1 pg (26.0-34.0); MCHC 32.1 g/dL (31.0-37.0); MCV 68.9 fL (80.0-100.0); MEAN PLATELET VOLUME 9.6 fL (7.4-10.4); MONOCYTES 7.5 % (2-11); NEUTROPHILS 76.9 % (40-80); PLATELET COUNT 452 10x3/uL (130-400); RBC 4.57 10x6/uL (4.20-6.10); RDW 14.1 % (11.5-14.5)
[2019-04-21 05:32] LABS: ANION GAP 14.5 mmol/L (8-16); BILIRUBIN - TOTAL 0.95 mg/dL (0.2-1.3); CARBON DIOXIDE 26.7 mmol/L (21.0-32.0); POTASSIUM - SERUM 3.2 mmol/L (3.5-5.1); PROTEIN - SERUM 6.1 g/dL (6.4-8.2)
[2019-04-21 05:35] LABS: WBC 11.1 10x3/uL (4.8-10.8)
[2019-04-21 05:46] LABS: ALBUMIN 2.6 g/dL (3.4-5.0); CREATININE - SERUM 2.7 mg/dL (0.6-1.3)
--- NOTE | 2019-04-21 07:40 | NUR ---
PT RESTING IN BED, SHIFT ASSESSMENT PERFORMED. DENIES ANY NEEDS AT THIS TIME, WILL CONT TO FOLLOW POC
--- NOTE | 2019-04-21 09:15 | NUR ---
RUG DESIGNER REPORTS BP OF 76/46. MANUAL BP 78/58. PT IS ASYMPTOMATIC. ENTRESTO WAS STARTED YESTERDAY. PT HAS ENTRESTO AND COREG ORDED THIS AM. WILL HOLD BOTH MEDICATIONS UNTIL ARRIVES
[2019-04-21 09:21] VITALS: BP 78/52
[2019-04-21 11:17] VITALS: BP 86/56
--- NOTE | 2019-04-21 12:00 | NUR ---
PT SITTING UP IN BED EATING LUNCH, DENIES ANY NEEDS AT THIS TIME, WILL CONT TO FOLLOW POC
[2019-04-21 15:24] LABS: UDS - AMPHET NEGATIVE QUAL (NEGATIVE); UDS - BARB NEGATIVE QUAL (NEGATIVE); UDS - BENZO NEGATIVE QUAL (NEGATIVE); UDS - COCAINE NEGATIVE QUAL (NEGATIVE); UDS - OPIATE POSITIVE QUAL (NEGATIVE); UDS - PCP NEGATIVE QUAL (NEGATIVE); UDS - THC NEGATIVE QUAL (NEGATIVE)
--- NOTE | 2019-04-21 15:30 | NUR ---
DYE RANGE FEEDER ASKED NURSE IF PT WAS DISCHARGED BECAUSE HE WAS NOT IN ROOM. NURSE WENT TO PT ROOM AND FOUND IV DISCONNECTED WITH DOBUTAMINE DRIP STILL GOING AND LEAKING ALL OVER HIS BED. STOPPED DOBUTAMINE PUMP. DYE RANGE FEEDER ADVISED NURSE SHE WILL COME BACK AFTER HER OTHER PTS. NURSE STARTED LOOKING FOR PT. DYE RANGE FEEDER WALKED BACK UP TO NURSE WITH PT. DYE RANGE FEEDER STATES SHE FOUND PT WALKING AROUND MED SURGE. NURSE EDUCATED PT ON IMPORTANCE OF NOT DISCONNECTING HIMSELF FROM HIS IVF. PT VERBALIZES UNDERSTANDING. PT BEGAN ASKING NURSE IF HE WAS STILL AT [facility]. ADVISED PT HE WAS. PT STATES HE DOES NOT REMEMBER DISCONNECTING HIS IV AND WALKING TO THE VENDING MACHINE. PT ALSO STATES HIS TOOTH IS HURTING AND HE THINKS IT IS BECOMING INFECTED. ADVISED PT THAT NURSE WILL TALK WITH LICHA.
[2019-04-21 15:59] VITALS: BP 101/59
--- NOTE | 2019-04-21 17:06 | NUR ---
ADVISED KYLAH HURT THAT PT WBC HAS INCREASED FROM 8.1 TO 11.1 AND THAT PT TOOTH IS HURTING HIM. KYLAH ADVISED NURSE THAT HE CAN HAVE APAP FOR PAIN.
--- NOTE | 2019-04-21 17:40 | NUR ---
PT RESTING IN BED, DENIES ANY NEEDS AT THIS TIME. WILL CONT TO FOLLOW POC
[2019-04-21 20:15] VITALS: BP 94/56
--- NOTE | 2019-04-21 20:33 | NUR ---
SPOKE WITH DR. EVERETT TO VERIFY HOLD ON ENTREST AND COREG PER NOTE TODAY. VERIFIED. EXPLAINED THAT HE DISCONECTS HIS DOBUTAMINE HIMSELF AND THROW IV TUBING ON THE GROUND. REPORTED FROM OFFGOING HE HAS DONE THIS ALL DAY. ORDER TO D/C DOBUTAMINE. WHEN DOING INITIAL ROUND IV DISCONNECTED AND LAYING ON BED. PUMP ON PAUSE. UNABLE TO FIND PT IN ROOM OR IN HALLWAY.
--- NOTE | 2019-04-21 20:36 | NUR ---
PT CAME OUT TO NURSES STATION AND THIS NURSE EDUCATED HIM ON THE IMPORTANCE OF NOT DISCONNECTIONG IV AND NEED FOR DRIP PRIOR TO CALLING MD. HEART MONITOR OFF AND COMPLEX CASE MANAGER STATED REPORTED TO HIM PT DOES'NT LIKE WEARING HIS HEART MONITOR. EDIUCATED HIM ON THE NEED FOR MONITOR AND PPLACED IT BACK ON HIM. VERBAL AGREEMENT GIVEN TO KEEP IT ON,
[2019-04-22 03:45] VITALS: BP 95/56
--- NOTE | 2019-04-22 05:25 | NUR ---
UP ALL NITE AMB AROUND HOSPITAL. GOING TO SNACK MACHINES AND SODA MACHINE. EXPLAINED TO BE CAREFUL OF FLUID INTAKE. NONCOMPLIANT.
[2019-04-22 05:40] LABS: BASOPHILS 0.3 % (0-2); EOSINOPHILS 1.2 % (0-7); HEMATOCRIT 30.5 % (42.0-54.0); HEMOGLOBIN 9.9 g/dL (13.5-17.5); IMMATURE GRANULOCYTES 0.4 % (0-5); LYMPHOCYTES 14.3 % (15-50); MCH 22.2 pg (26.0-34.0); MCHC 32.5 g/dL (31.0-37.0); MCV 68.4 fL (80.0-100.0); MEAN PLATELET VOLUME 9.7 fL (7.4-10.4); MONOCYTES 8.2 % (2-11); NEUTROPHILS 75.6 % (40-80); PLATELET COUNT 453 10x3/uL (130-400); RBC 4.46 10x6/uL (4.20-6.10); RDW 14.1 % (11.5-14.5); WBC 13.3 10x3/uL (4.8-10.8)
[2019-04-22 06:00] LABS: ALBUMIN 2.8 g/dL (3.4-5.0); ANION GAP 15.9 mmol/L (8-16); BILIRUBIN - TOTAL 0.66 mg/dL (0.2-1.3); CALCIUM 7.4 mg/dL (8.5-10.1); CARBON DIOXIDE 23.1 mmol/L (21.0-32.0); CREATININE - SERUM 2.7 mg/dL (0.6-1.3); MAGNESIUM - SERUM 1.9 mg/dL (1.8-2.4); PROTEIN - SERUM 6.5 g/dL (6.4-8.2)
[2019-04-22 07:27] VITALS: BP 103/71
--- NOTE | 2019-04-22 07:34 | NUR ---
REPORT RECEIVED. WILL CONTINUE WITH POC. PT CURRENTLY LYING LEFT SIDE. CALL LIGHT W/I REACH. SIDE RAIL UP X2. PT IS AAO AND REPORTS THAT HE " JUST WANTS TO GET OUT OF THIS [facility]." PT THEN GOT OUT OF BED AND WALKED THE HALLWAY. RR EVEN AND UNLABORED ON RA. R.FOR PIV IS SALINE LOCKED. PT IS UP AD DESIREE. PT DENIES ANY NEEDS AT THIS TIME. NO S/S OF DISTRESS NOTED. WILL CTM.
--- NOTE | 2019-04-22 11:21 | NUR ---
PT PLACED IN TEMPORARY CONTACT ISOLATION FOR STAPH IN URINE. WILL CTM.
--- NOTE | 2019-04-22 14:10 | MORECARE ---
CASE MANAGEMENT DISCHARGE SUMMARY PATIENT: WM CABAN UNIT: [id number] ADM DATE: 04/19/19 AGE: 38 : [birth year] SEX: M ROOM/BED: D.4684 AUTHOR: EMI,DOC PHYSICIAN: REFERRING PHYSICIAN: HAN MCGARRY MD DATE OF SERVICE: 04/22/19 Discharge Plan Patient Name: WM CABAN Facility: [facility]:[place] : 1980 Planned Disposition: Home Anticipated Discharge Date: Discharge Date: Expected LOS: Initial Reviewer: [email or web address] Initial Review Date: 04/22/2019 Generated: 04/22/19 3:09 pm Comments DCP- Discharge Planning Updated by [email or web address]: Loren Reid on 04/22/19 1:[address] Patient Name: WM CABAN Admission Status: ER Accout number: [id number] Admission Date: 04-19-2019 : 1980 Admission Diagnosis: Attending: HAN MCGARRY Current LOS: 3 Anticipated DC Date: Planned Disposition: Home Primary Insurance: MEDICAID [place] Discharge Planning Comments: CM met with patient to complete initial dc planning assessment. CM educated patient on the CM role and verbal consent given by patient to complete assessment. CM verified patient's address, phone number, and emergency contact phone numbers. Patient lives at home alone and reports he is independent in his care. At discharge patient plans to return home and feels this is a safe discharge. CM discussed availability of home health, rehab services, and medical equipment. Patient denied known discharge needs at this time.. . CM will continue to follow and will assist as needed with dc plans/needs. Public Health Internship: Loren Reid DCPIA - Discharge Planning Initial Assessment Updated by [email or web address]: Loren Reid on 04/22/19 2:07 pm * Is the patient Alert and Oriented? Yes * How many steps to enter\exit or inside your home? * PCP MALGORZATA * Pharmacy [facility] * Preadmission Environment Home with Family * ADLs Independent * List name and contact numbers for known caregivers / representatives who currently or will assist patient after discharge: TANYA [phone] * Verbal permission to speak to the caregivers and representatives has been obtained from the patient. N/A * Additional services required to return to the preadmission environment? No * Can the patient safely return to the preadmission environment? Yes * Has this patient been hospitalized within the prior 30 days at any hospital? No Patient Name: WM CABAN Page [id number] at 1410 All edits/amendments must be made on the electronic document DICTATION DATE: 04/22/191408 CARD FILER: JASMEET 04/22/191408 RPT#: [id number] DC DATE: STATUS: ADM IN [facility] [address] [place] [address] END OF REPORT
--- NOTE | 2019-04-22 14:19 | NUR ---
I have reviewed this patient and I concur with the Shift Assessment completed by the Licensed Practical Nurse today this shift.
[2019-04-22 14:26] VITALS: Ht 180.3 cm; Wt 120.7 kg
[2019-04-22 15:41] VITALS: BP 109/64
--- NOTE | 2019-04-22 19:04 | NUR ---
RECIEVED UP IN BED WITH EYES OPEN. VISITORS AT BEDSIDE. ALERT AND ORIENTED X4. IV TO RT FA SL.. TELEMETRY IN PLACE. REMAINS IN CONTACT ISOLATION R/T STAP.A IN URINE. DENIES ANY NEEDS AT THIS TIME.
[2019-04-22 20:44] VITALS: BP 98/70
[2019-04-23 00:45] VITALS: BP 100/70
[2019-04-23 06:20] LABS: BASOPHILS 0.3 % (0-2); EOSINOPHILS 1.9 % (0-7); HEMATOCRIT 30.5 % (42.0-54.0); HEMOGLOBIN 9.9 g/dL (13.5-17.5); IMMATURE GRANULOCYTES 0.3 % (0-5); LYMPHOCYTES 17.2 % (15-50); MCHC 32.5 g/dL (31.0-37.0); MCV 67.6 fL (80.0-100.0); MEAN PLATELET VOLUME 9.8 fL (7.4-10.4); MONOCYTES 5.7 % (2-11); NEUTROPHILS 74.6 % (40-80); PLATELET COUNT 430 10x3/uL (130-400); RBC 4.51 10x6/uL (4.20-6.10); WBC 10.2 10x3/uL (4.8-10.8)
[2019-04-23 06:34] LABS: ALBUMIN 2.9 g/dL (3.4-5.0); ANION GAP 14.8 mmol/L (8-16); BILIRUBIN - TOTAL 0.83 mg/dL (0.2-1.3); CALCIUM 7.8 mg/dL (8.5-10.1); CARBON DIOXIDE 23.1 mmol/L (21.0-32.0); MAGNESIUM - SERUM 1.8 mg/dL (1.8-2.4); POTASSIUM - SERUM 3.9 mmol/L (3.5-5.1); PROTEIN - SERUM 6.6 g/dL (6.4-8.2)
[2019-04-23 06:39] VITALS: BP 108/76
[2019-04-23 07:57] VITALS: BP 125/82
[2019-04-23 11:18] VITALS: BP 118/86
--- NOTE | 2019-04-23 14:12 | NUR ---
I have reviewed this patient and I concur with the Shift Assessment completed by the Licensed Practical Nurse today this shift.
[2019-04-23] MEDS ORDERED: PROTONIX40 MG PO (15:01)
[2019-04-23] MEDS ORDERED: COREG6.25 MG PO (15:01)
--- NOTE | 2019-04-23 16:35 | NUR ---
DC GIVEN TO PT
--- NOTE | 2019-04-23 16:56 | NUR ---
DC HOME PER PERSONAL CAR
--- NOTE | 2019-04-25 09:19 | MORECARE ---
CASE MANAGEMENT DISCHARGE SUMMARY PATIENT: WM CABAN UNIT: [id number] ADM DATE: 04/19/19 AGE: 38 : [birth year] SEX: M ROOM/BED: D.3814 AUTHOR: EMI,DOC PHYSICIAN: REFERRING PHYSICIAN: HAN MCGARRY MD DATE OF SERVICE: 04/25/19 Discharge Plan Patient Name: WM CABAN Facility: [facility]:[place] : 1980 Planned Disposition: Home Anticipated Discharge Date: 04/23/19 Discharge Date: 04/23/2019 Expected LOS: 4 Initial Reviewer: [email or web address] Initial Review Date: 04/22/2019 Generated: 04/25/19 10:19 am DCP- Discharge Planning Updated by [email or web address]: Loren Reid on 04/22/19 1:[address] Patient Name: WM CABAN Admission Status: ER Accout number: [id number] Admission Date: 04-19-2019 : 1980 Admission Diagnosis: Attending: HAN MCGARRY Current LOS: 3 Anticipated DC Date: Planned Disposition: Home Primary Insurance: MEDICAID [place] Discharge Planning Comments: CM met with patient to complete initial dc planning assessment. CM educated patient on the CM role and verbal consent given by patient to complete assessment. CM verified patient's address, phone number, and emergency contact phone numbers. Patient lives at home alone and reports he is independent in his care. At discharge patient plans to return home and feels this is a safe discharge. CM discussed availability of home health, rehab services, and medical equipment. Patient denied known discharge needs at this time.. . CM will continue to follow and will assist as needed with dc plans/needs. Quality Assurance Group Leader: Loren Reid DCPIA - Discharge Planning Initial Assessment Updated by [email or web address]: Loren Reid on 04/22/19 2:07 pm * Is the patient Alert and Oriented? Yes * How many steps to enter\exit or inside your home? * PCP MALGORZATA * Pharmacy [facility] * Preadmission Environment Home with Family * ADLs Independent * List name and contact numbers for known caregivers / representatives who currently or will assist patient after discharge: TANYA [phone] * Verbal permission to speak to the caregivers and representatives has been obtained from the patient. N/A * Additional services required to return to the preadmission environment? No * Can the patient safely return to the preadmission environment? Yes * Has this patient been hospitalized within the prior 30 days at any hospital? No Last DP export: 04/22/19 1:09 pm Patient Name: WM CABAN Page 46118 at 0919 All edits/amendments must be made on the electronic document DICTATION DATE: 04/25/19917 HOT PLATE PLYWOOD PRESS LABORER: JASMEET 04/25/19917 RPT#: [id number] DC DATE:04/23/19 STATUS: DIS IN [facility] [address] [place] [address] END OF REPORT
== END 2019-04-23 16:57 | disposition home or self-care (01) | DRG 292 ==
LOC: D.ER 23:56 → D.M2 04-19 01:42 → OBSVTIME 04-19 01:42 → D.M2 04-19 01:42
PROVIDERS: Family Medicine; Internal Medicine Interventional Cardiology; ADMIT Family Medicine; ATTEND Family Medicine
DX: I11.0 Hypertensive heart disease with heart failure (principal); K50.90 Crohn's disease, unspecified, without complications; N17.9 Acute kidney failure, unspecified; E87.1 Hypo-osmolality and hyponatremia; E87.6 Hypokalemia; I42.8 Other cardiomyopathies; I50.23 Acute on chronic systolic (congestive) heart failure; F14.19 Cocaine abuse with unspecified cocaine-induced disorder; D50.9 Iron deficiency anemia, unspecified; Z91.19 Patient's noncompliance with other medical treatment and regimen

== ENCOUNTER 2019-04-26 02:55 | Inpatient (IN) | payer MEDICAID ==
[~2019-04-26] VITALS: Ht 180.3 cm; Wt 117.9 kg
[~2019-04-26 02:55] MED LIST changes: +COREG6.25 MG PO; +PROTONIX40 MG PO
[2019-04-26 04:17] LABS: BASOPHILS 0.2 % (0-2); EOSINOPHILS 1.3 % (0-7); HEMATOCRIT 31.7 % (42.0-54.0); HEMOGLOBIN 10.1 g/dL (13.5-17.5); IMMATURE GRANULOCYTES 0.4 % (0-5); LYMPHOCYTES 18.1 % (15-50); MCH 21.9 pg (26.0-34.0); MCHC 31.9 g/dL (31.0-37.0); MCV 68.6 fL (80.0-100.0); MEAN PLATELET VOLUME 9.8 fL (7.4-10.4); MONOCYTES 6.5 % (2-11); NEUTROPHILS 73.5 % (40-80); PLATELET COUNT 428 10x3/uL (130-400); RBC 4.62 10x6/uL (4.20-6.10); RDW 14.6 % (11.5-14.5); WBC 13.5 10x3/uL (4.8-10.8)
[2019-04-26 04:23] LABS: APPEARANCE CLEAR (CLEAR); BILIRUBIN NEGATIVE (NEGATIVE); COLOR YELLOW (YELLOW); GLUCOSE NEGATIVE (NEGATIVE); KETONE NEGATIVE (NEGATIVE); NITRITE NEGATIVE (NEGATIVE); PROTEIN NEGATIVE (NEGATIVE); UROBILINOGEN NORMAL (NORMAL)
[2019-04-26 04:32] LABS: UDS - AMPHET NEGATIVE QUAL (NEGATIVE); UDS - BARB NEGATIVE QUAL (NEGATIVE); UDS - BENZO NEGATIVE QUAL (NEGATIVE); UDS - COCAINE NEGATIVE QUAL (NEGATIVE); UDS - OPIATE NEGATIVE QUAL (NEGATIVE); UDS - PCP NEGATIVE QUAL (NEGATIVE); UDS - THC NEGATIVE QUAL (NEGATIVE)
[2019-04-26 04:32] LABS: ANION GAP 15.5 mmol/L (8-16); BILIRUBIN - TOTAL 2.14 mg/dL (0.2-1.3); CALCIUM 8.5 mg/dL (8.5-10.1); CARBON DIOXIDE 26.1 mmol/L (21.0-32.0); CREATININE - SERUM 1.9 mg/dL (0.6-1.3); POTASSIUM - SERUM 4.6 mmol/L (3.5-5.1); PROTEIN - SERUM 6.8 g/dL (6.4-8.2)
[2019-04-26 04:39] LABS: C-REACTIVE PROTEIN 3.2 mg/dL (0.0-0.9)
[2019-04-26 07:33] VITALS: BP 121/80
--- NOTE | 2019-04-26 07:34 | NUR ---
PT C/O CONT. COUGH STATES HIS STOMACH HURTS, HE IS TIRED, STATES HE IS NOT GETTING ANY SLEEP DUE TO COUGH. ROBITUSSIN GIVEN PER ORDERS. RESULTS PENDING.
--- NOTE | 2019-04-26 08:22 | NUR ---
WARM BLANKETS FOR COMFORT.
--- NOTE | 2019-04-26 08:27 | NUR ---
INFORM PT WE ARE WAITING ON A COUPLE MORE LABS TO BE COMPLETED. HE VOICED UNDERSTANDING.
[2019-04-26 08:35] LABS: AMYLASE - SERUM 137 U/L (25-115); LIPASE 468 U/L (73-393)
[2019-04-26] MEDS ORDERED: DILAUDID4 MG PO (08:40)
--- NOTE | 2019-04-26 08:52 | NUR ---
DR. ROWELL'S PA HERE TO SEE PT. GOING TO ADMIT PT TO THE FLOOR.
[2019-04-26 09:08] VITALS: BP 128/78
--- NOTE | 2019-04-26 09:31 | MORECARE ---
CASE MANAGEMENT DISCHARGE SUMMARY PATIENT: WM MARTINEZ UNIT: [id number] ADM DATE: 04/26/19 AGE: 38 : [birth year] SEX: M ROOM/BED: D.2227 AUTHOR: CAITLIN MIDDLETON PHYSICIAN: REFERRING PHYSICIAN: GEOVANNA ROWELL MD DATE OF SERVICE: 04/26/19 Discharge Plan Patient Name: WM MARTINEZ [facility] : 1980 Planned Disposition: Home Anticipated Discharge Date: 04/29/19 Discharge Date: Expected LOS: 3 Initial Reviewer: [email or web address] Initial Review Date: 04/26/2019 Generated: 04/26/19 10:31 am DCPIA - Discharge Planning Initial Assessment Updated by [email or web address]: Mindi Bruno on 04/26/19 9:29 am * Is the patient Alert and Oriented? Yes * How many steps to enter\exit or inside your home? * PCP Dr. Mahoney * Pharmacy [facility] * Preadmission Environment Home Alone * ADLs Independent * Equipment None * List name and contact numbers for known caregivers / representatives who currently or will assist patient after discharge: Clau Martinez - ex - [phone] * Verbal permission to speak to the caregivers and representatives has been obtained from the patient. Yes * Community resources currently utilized None * Additional services required to return to the preadmission environment? No * Can the patient safely return to the preadmission environment? Yes * Has this patient been hospitalized within the prior 30 days at any hospital? Yes Patient Name: WM MARTINEZ Page [phone] at 0931 All edits/amendments must be made on the electronic document DICTATION DATE: 04/26/19929 RECRUITMENT MANAGER: JASMEET 04/26/19929 RPT#: [id number] DC DATE: STATUS: ADM IN [facility] [address] [place] [address] END OF REPORT
--- NOTE | 2019-04-26 09:38 | MORECARE ---
CASE MANAGEMENT DISCHARGE SUMMARY PATIENT: WM MARTINEZ UNIT: [id number] ADM DATE: 04/26/19 AGE: 38 : [birth year] SEX: M ROOM/BED: D.2227 AUTHOR: EMIDOC PHYSICIAN: REFERRING PHYSICIAN: GEOVANNA ROWELL MD DATE OF SERVICE: 04/26/19 Discharge Plan Patient Name: WM MARTINEZ Facility: [facility]:[place] : 1980 Planned Disposition: Home Anticipated Discharge Date: 04/29/19 Discharge Date: Expected LOS: 3 Initial Reviewer: [email or web address] Initial Review Date: 04/26/2019 Generated: 04/26/19 10:38 am DCP- Discharge Planning Updated by [email or web address]: Mindi Bruno on 04/26/19 8:[address] Patient Name: WM MARTINEZ Admission Status: ER Accout number: [id number] Admission Date: 04-26-2019 : 1980 Admission Diagnosis: Attending: GEOVANNA ROWELL Current LOS: 1 Anticipated DC Date: 04-29-2019 Planned Disposition: Home Primary Insurance: MEDICAID [place] Discharge Planning Comments: CM met with patient to complete initial dc planning assessment. CM educated patient on the CM role and verbal consent given by patient to complete assessment. CM verified patient's address, phone number, and emergency contact phone numbers. Patient lives at home alone and reports he is independent in his care at home. At discharge patient plans to return home alone and feels this is a safe discharge. CM discussed availability of home health, rehab services, and medical equipment. Patient denied known discharge needs at this time. Patient reports his ex- Clau will transport him/her home at time of discharge. CM will continue to follow and will assist as needed with dc plans/needs. Vp Corporate Partnerships: Mindi Bruno RN, [facility] DCPIA - Discharge Planning Initial Assessment Updated by [email or web address]: Mindi Bruno on 04/26/19 9:29 am * Is the patient Alert and Oriented? Yes * How many steps to enter\exit or inside your home? * PCP Dr. Mahoney * Pharmacy [facility] * Preadmission Environment Home Alone * ADLs Independent * Equipment None * List name and contact numbers for known caregivers / representatives who currently or will assist patient after discharge: Clau Martinez - ex - [phone] * Verbal permission to speak to the caregivers and representatives has been obtained from the patient. Yes * Community resources currently utilized None * Additional services required to return to the preadmission environment? No * Can the patient safely return to the preadmission environment? Yes * Has this patient been hospitalized within the prior 30 days at any hospital? Yes Last DP export: 04/26/19 8:31 am Patient Name: WM MARTINEZ Page [phone] at 0938 All edits/amendments must be made on the electronic document DICTATION DATE: 04/26/19937 SERVICE CAR DRIVER: JASMEET 04/26/19937 RPT#: [id number] DC DATE: STATUS: ADM IN [facility] [address] [place] [address] END OF REPORT
--- NOTE | 2019-04-26 10:38 | MORECARE ---
CASE MANAGEMENT DISCHARGE SUMMARY PATIENT: WM MARTINEZ UNIT: [id number] ADM DATE: 04/26/19 AGE: 38 : [birth year] SEX: M ROOM/BED: D.2227 AUTHOR: CAITLIN MIDDLETON PHYSICIAN: REFERRING PHYSICIAN: GEOVANNA ROWELL MD DATE OF SERVICE: 04/26/19 Discharge Plan Patient Name: WM MARTINEZ Facility: [facility]:[place] : 1980 Planned Disposition: Home Anticipated Discharge Date: 04/29/19 Discharge Date: Expected LOS: 3 Initial Reviewer: [email or web address] Initial Review Date: 04/26/2019 Generated: 04/26/19 11:38 am Comments DCP- Discharge Planning Updated by [id number]: Mindi Bruno on 04/26/19 9:[address] Late Entry: Addendum Holly HURT visited patient in the ER. He was agitated and raised his voice as Holly was trying to ask him questions. He cussed at her and asked her "why the f&*! are you asking me all these questions" he did not lower his voice at time. CM requested the nurse call security to stand outside of the room until Holly completed her assessment. Patient finally calmed down, lowering his voice after security was called. Enamel Pulverizer: Mindi Bruno RN, [facility] DCP- Discharge Planning Updated by [email or web address]: Mindi Bruno on 04/26/19 8:[address] Patient Name: WM MARTINEZ Admission Status: ER Accout number: [id number] Admission Date: 04-26-2019 : 1980 Admission Diagnosis: Attending: GEOVANNA ROWELL Current LOS: 1 Anticipated DC Date: 04-29-2019 Planned Disposition: Home Primary Insurance: MEDICAID [place] Discharge Planning Comments: CM met with patient to complete initial dc planning assessment. CM educated patient on the CM role and verbal consent given by patient to complete assessment. CM verified patient's address, phone number, and emergency contact phone numbers. Patient lives at home alone and reports he is independent in his care at home. At discharge patient plans to return home alone and feels this is a safe discharge. CM discussed availability of home health, rehab services, and medical equipment. Patient denied known discharge needs at this time. Patient reports his ex- Clau will transport him/her home at time of discharge. CM will continue to follow and will assist as needed with dc plans/needs. Enamel Pulverizer: Mindi Bruno RN, [facility] DCPIA - Discharge Planning Initial Assessment Updated by [email or web address]: Mindi Bruno on 04/26/19 9:29 am * Is the patient Alert and Oriented? Yes * How many steps to enter\\exit or inside your home? * PCP Dr. Mahoney * Pharmacy [facility] * Preadmission Environment Home Alone * ADLs Independent * Equipment None * List name and contact numbers for known caregivers / representatives who currently or will assist patient after discharge: Clau Martinez - ex - [phone] * Verbal permission to speak to the caregivers and representatives has been obtained from the patient. Yes * Community resources currently utilized None * Additional services required to return to the preadmission environment? No * Can the patient safely return to the preadmission environment? Yes * Has this patient been hospitalized within the prior 30 days at any hospital? Yes Last DP export: 04/26/19 8:38 am Patient Name: WM MARTINEZ Page [phone] at 1038 All edits/amendments must be made on the electronic document DICTATION DATE: 04/26/19 1037 CLUB CONCIERGE: JASEMET 04/26/19 1037 RPT#: [id number] DC DATE: STATUS: ADM IN [facility] [address] [place] [address] END OF REPORT
[2019-04-26 13:32] VITALS: BP 142/54
--- NOTE | 2019-04-26 15:12 | NUR ---
I have reviewed this patient and I concur with the Shift Assessment completed by the Licensed Practical Nurse today this shift.
[2019-04-26 15:38] VITALS: BP 142/54; BMI 36.3
--- NOTE | 2019-04-26 18:40 | NUR ---
CENTRAL LINE REMOVED. REY DRAIN REMOVED. LEG BAG GIVEN FOR GALLAGHER. EVERY OTHER STAPLE REMOVED PER DR URENA. SLIGHT DISCOMFORT WITH PROCEDURES. DISCHARGE INSTRUCTIONS GIVEN AND PATIENT VERBALIZED UNDERSTANDING.
--- NOTE | 2019-04-26 19:12 | NUR ---
IN TO MEET PATIENT. PT STATING HE IS NOT FEELING WELL AT THIS TIME. AID IN ROOM TAKING VITAL SIGNS. BLOOD PRESSURE 74/40. LOWERED BED WITH FEET ELEVATED ABOUT HEART AND RETRIEVED MANUAL BLOOD PRESSURE CUFF. ATTEMPTED TO TAKE BLOOD PRESSURE AND RECEIVED READING OF 110/70 MANUALLY. TAKING OFF BLOOD PRESSURE CUFF PATIENT GREW UPSET AND INTO A PANIC. PT THEN TENSED UP. EYES ROLLED IN THE BACK OF HEAD. TEETH CLINCHED AND PATIETN RIGID WITH ARMS DRAWN IN. PT BEGAN TO MAKE GRUNTING NOISES AND APPEARED TO BE HAVING A SEIZURE. RAPID RESPONSE CALLED. RAPID TEAM TO FLOOR IMMEDIATELY. ATTEMPTED SEVERAL TIMES TO OBTAIN ANOTHER BLOOD PRESSURE. AFTER SEVERAL ATTEMPTS 83/43. ANOTHER ATTEMPT TO TAKE BLOOD PRESSURE IN OPPOSITE ARM AND MANUALS. SUCCEEDED IN RECEIVINF A 118/68. PAGED DOCTOR TERRAZZO FINISHER. KYLAH HURT CALLED BACK. INFORMED LICHA OF SITUATION. LICHA STATED SHE WOULD BE PLACING ORDERS FOR ENZYMES AND LABS. CONSULT FOR CARDIOLOGY. PATIENT HAS ANXIETY. STABLE AT THIS TIME.
[2019-04-26 19:46] LABS: BASOPHILS 0.5 % (0-2); HEMATOCRIT 31.8 % (42.0-54.0); HEMOGLOBIN 10.1 g/dL (13.5-17.5); IMMATURE GRANULOCYTES 0.6 % (0-5); LYMPHOCYTES 18.7 % (15-50); MCH 22.1 pg (26.0-34.0); MCHC 31.8 g/dL (31.0-37.0); MCV 69.4 fL (80.0-100.0); MEAN PLATELET VOLUME 10.1 fL (7.4-10.4); MONOCYTES 9.5 % (2-11); NEUTROPHILS 69.7 % (40-80); PLATELET COUNT 382 10x3/uL (130-400); RBC 4.58 10x6/uL (4.20-6.10); RDW 14.8 % (11.5-14.5); WBC 12.6 10x3/uL (4.8-10.8)
--- NOTE | 2019-04-26 20:13 | NUR ---
PAGED CARDIOLOGY PER CONSULT ORDER.
[2019-04-26 20:19] LABS: ALBUMIN 2.8 g/dL (3.4-5.0); ALKALINE PHOSPHATASE 189 U/L (46-116); BILIRUBIN - TOTAL 2.35 mg/dL (0.2-1.3); CALC OSMOLALITY 267 mosm/kg (275-300); CALCIUM 7.9 mg/dL (8.5-10.1); CARBON DIOXIDE 22.6 mmol/L (21.0-32.0); CHLORIDE - SERUM 91 mmol/L (98-107); CKMB 8.8 U/L (0.0-3.6); CREATINE KINASE 459 UL (21-232); GLUCOSE 122 mg/dL (74-106); POTASSIUM - SERUM 4.3 mmol/L (3.5-5.1); PRO BNP 4958 pg/mL (0-125); PROTEIN - SERUM 6.3 g/dL (6.4-8.2); SODIUM 128 mmol/L (136-145); UREA NITROGEN 40 mg/dL (7-18)
--- NOTE | 2019-04-26 20:20 | NUR ---
DR. SA[place] ANDERSON RETURNED PAGE. INFORMED OF CONSULT AND GAVE BREIF REPORT ON PATIENT. NO NEW ORDERS AT THIS TIME.
[2019-04-26 20:34] LABS: CREATININE - SERUM 2.5 mg/dL (0.6-1.3); eGFR NON AFRICAN AMERICAN 31 mL/min (90-120)
[2019-04-26 20:35] LABS: ALT (SGPT) 542 U/L (10-68)
[2019-04-26 20:37] LABS: TROPONIN-I 0.158 ng/mL (0.000-0.060)
--- NOTE | 2019-04-26 21:26 | NUR ---
LAB RESULTS SHOW D-DIMER OF 5.5. PAGE TO KYLAH.
[2019-04-26 21:31] LABS: ANION GAP 16.7 mmol/L (8-16); CALCIUM 7.8 mg/dL (8.5-10.1); CARBON DIOXIDE 21.3 mmol/L (21.0-32.0); CREATININE - SERUM 2.8 mg/dL (0.6-1.3)
--- NOTE | 2019-04-26 21:40 | NUR ---
PT CONTINUES TO HAVE APNEIC PERIODS AND THEN EXTREME ANXIETY STATING HE CAN'T BREATH AND NEARLY FALLS FROM THE BED TO FLOOR WITH EVERY EPISODE. FAMILY AT BEDSIDE. PT PALE IN COLOR. LUNGS CLEAR AND RESPIRATORY AT BEDSIDE. SATURATION 100% BUT PATIENT CONTINUALLY STATES THAT HE IS SHORT OF BREATH. CPOC AT THIS TIME.
--- NOTE | 2019-04-26 21:58 | NUR ---
SPOKE WITH KYLAH REES. INFORMED OF D-DIMER. STATES SHE IS PUTTING IN ORDERS FOR LUNG VENT PT IS TO GO TO THE ICU. INFORMED BUSINESS MANAGEMENT ASSOCIATE AND RECEIVED BED 2308.
--- NOTE | 2019-04-26 22:03 | NUR ---
RECEIVED PHONE CALL BACK FROM KYLAH STATING THAT DR. ROWELL DENIES THE ORDER FOR PT TO GO TO ICU AND THAT DR. ROWELL CONSIDERS THE PATIENT TO BE MEDICALLY STABLE AT THIS TIME. INFORMED COMMERCIAL LENDING VICE PRESIDENT.
--- NOTE | 2019-04-26 22:38 | NUR ---
OFF FLOOR TO LUNG VENT PROFUSION WITH NUC. MED NURSE AND RT THERAPIST AT SIDE.
--- NOTE | 2019-04-26 23:09 | NUR ---
BACK TO FLOOR FROM RADIOLOGY
--- NOTE | 2019-04-27 00:48 | NUR ---
PT MOTHER TO NURSES DESK. UPSET THAT PATIENT IS NOT BEING "TREATED" REASSURED PATIENT MOTHER THAT THIS NURSING STAFF AND DOCTORS HAVE WORKED AND BEEN DILIGENT IN PROVIDING CARE FOR PATIENT. MOTHER STATED SHE HATES THIS HOSPITAL. STATES THAT SHE "BROUGHT OTHER SON HERE AND THE ER CLEARED HIM THAT HIS LEG WASNT BROKEN AND TURNS OUT IT WAS BROKEN AND HE HAD TO HAVE EMERGENCY SURGERY." EXWIFE STATED THAT PT ALWAYS USES THIS HOPSITAL. CALLED WATER TREATMENT PLANT REPAIRER TO INFORM OF EVENTS. WENT IN TO SPEAK WITH PATIENT AND PATIENT FAMILY. FAMILY IS UPSET THAT A CIPHER EXPERT IS NOT IN RIGHT NOW. TOLD FAMILY SEVERAL TIMES THAT ICU NURSES, THE DANCE STUDIO MANAGER, AND ADMITTING DR HAVE DECLARED HIM MEDICALLY STABLE. PATIENT CONTINUES TO BE CONFUSED. STATES THAT HE CAN'T BREATH EVERY FEW SECONDS. FAMILY REMAINS AT BEDSIDE. PATIENT STATES HE DOES NOT WANT TO LEAVE THIS HOSPITAL.
[2019-04-27 01:15] VITALS: BP 90/60
--- NOTE | 2019-04-27 01:40 | NUR ---
BLADDER SCAN PERFORMED. ORDER STATED "POST VOID" BUT PT HAS NOT VOIDED DURING THIS SHIFT. BLADDER SCAN PERFORMED. 163 ML. PT STATES HE DOES NOT FEEL LIKE HE NEEDS TO VOID AT THIS TIME.
--- NOTE | 2019-04-27 02:15 | NUR ---
PT FAMILY ASKED THAT HE BE GIVEN ANXIETY MEDICINE. EXPLAINED THAT HE DOES NOT HAVE ORDERS FOR ANXIETY MEDICINE AT THIS TIME. FAMILY IRRITATED. REMAIN AT BEDSIDE.
--- NOTE | 2019-04-27 02:33 | NUR ---
PT APPEARS TO BE CALMING DOWN. FAMILY REMAINS IN ROOM. STABLE AT THIS TIME.
[2019-04-27 02:35] LABS: CKMB 9.3 U/L (0.0-3.6); CREATINE KINASE 509 UL (21-232)
[2019-04-27 02:41] LABS: TROPONIN-I 0.238 ng/mL (0.000-0.060)
--- NOTE | 2019-04-27 03:11 | NUR ---
MORE FAMILY MEMBERS HAVE ARRIVED AND IN ROOM.
[2019-04-27 07:30] LABS: BASOPHILS 0.1 % (0-2); EOSINOPHILS 0.1 % (0-7); HEMATOCRIT 30.7 % (42.0-54.0); HEMOGLOBIN 9.6 g/dL (13.5-17.5); IMMATURE GRANULOCYTES 0.9 % (0-5); LYMPHOCYTES 4.4 % (15-50); MCH 21.7 pg (26.0-34.0); MCHC 31.3 g/dL (31.0-37.0); MCV 69.3 fL (80.0-100.0); MEAN PLATELET VOLUME 9.9 fL (7.4-10.4); MONOCYTES 5.3 % (2-11); NEUTROPHILS 89.2 % (40-80); RBC 4.43 10x6/uL (4.20-6.10); RDW 14.8 % (11.5-14.5)
[2019-04-27 07:34] LABS: PLATELET COUNT 282 10x3/uL (130-400); WBC 17.3 10x3/uL (4.8-10.8)
[2019-04-27 08:06] LABS: ALBUMIN 2.5 g/dL (3.4-5.0); ANION GAP 22.7 mmol/L (8-16); BILIRUBIN - TOTAL 3.78 mg/dL (0.2-1.3); CALCIUM 7.6 mg/dL (8.5-10.1); CARBON DIOXIDE 17.4 mmol/L (21.0-32.0); CHOL - HDL RATIO 4.4 ratio (2.3-4.9); CREATININE - SERUM 3.5 mg/dL (0.6-1.3); POTASSIUM - SERUM 5.1 mmol/L (3.5-5.1); PROTEIN - SERUM 5.2 g/dL (6.4-8.2)
[2019-04-27 08:11] LABS: CKMB 10.8 U/L (0.0-3.6); CREATINE KINASE 509 UL (21-232); TROPONIN-I 0.232 ng/mL (0.000-0.060)
--- NOTE | 2019-04-27 08:52 | NUR ---
ALERT AND ORIENTED X 3. LUNGS CLEAR BILATERALLY IN ALL BENNETT. HEART SOUNDS S1 AND S2 HEARD IN ALL BENNETT. BOWEL SOUNDS ACTIVE X 4. SKIN INTACT WITHOUT REDNESS. DENIES NEEDS. SPOKE WITH CABRERA ARIAS. BP 114/42. BP MEDICATIONS HELD. POTASSIUM 5.0. POTASSIUM HELD. BED LOW. CALL LABOY AND PERSONAL ITEMS IN REACH. WILL CONTINUE TO MONITOR.
[2019-04-27 09:09] VITALS: BP 114/42
--- NOTE | 2019-04-27 12:08 | NUR ---
EDUCATION PROVIDED ON NEED FOR URINE. STERILE URINE CUP IN ROOM. VERBALIZED UNDERSTANDING.
--- NOTE | 2019-04-27 12:50 | NUR ---
BP 90/58. CABRERA ARIAS ON FLOOD NOTIFIED.
[2019-04-27 12:54] VITALS: Ht 180.3 cm; Wt 117.9 kg
[2019-04-27 13:16] VITALS: BP 90/58
--- NOTE | 2019-04-27 13:51 | NUR ---
RESTING IN BED. DENIES NEEDS. WILL CONTINUE TO MONITOR.
[2019-04-27 14:10] LABS: % SATURATION 8 % (15-55); IRON 31 ug/dl (35-150); TOTAL IRON BIND CAPACITY 375 ug/dl (260-445); UNSAT IRON BIND CAPACITY 344 ug/dl (150-375)
--- NOTE | 2019-04-27 16:20 | NUR ---
IV INFILTRATED TO RIGHT AC. RESITED TO LEFT HAND. REMOVED FROM RIGHT AC WITH TIP INTACT.
--- NOTE | 2019-04-27 16:21 | NUR ---
TRASH TRUCK DRIVER NOTIFIED BP 80/42.
--- NOTE | 2019-04-27 16:25 | NUR ---
CYBER WORKFORCE DEVELOPER AND MANAGER STATES 250CC BOLUS NS NOW THEN GIVE ONE BAG 1000ML AND STOP FLUIDS AFTER.
[2019-04-27 16:43] VITALS: BP 80/42
[2019-04-27 16:45] LABS: UDS - AMPHET NEGATIVE QUAL (NEGATIVE); UDS - BARB NEGATIVE QUAL (NEGATIVE); UDS - BENZO NEGATIVE QUAL (NEGATIVE); UDS - COCAINE NEGATIVE QUAL (NEGATIVE); UDS - OPIATE POSITIVE QUAL (NEGATIVE); UDS - PCP NEGATIVE QUAL (NEGATIVE); UDS - THC NEGATIVE QUAL (NEGATIVE)
--- NOTE | 2019-04-27 19:00 | NUR ---
PT ALERT AND ORIENTED X 4. SIGNIFICANT OTHER IN ROOM. PATIENT STATES HE IS FEELING MUCH BETTER TODAY. SPEAKING WITH PATIENT ABOUT THE NIGHT BEFORE, HE STATES "BEFORE I CAME IN, I JUST COULDN'T BREATHE. I HAVE THIS PRESCRIPTION OF LASIX AND I AM SUPPOSED TO TAKE 1 BUT I DIDNT FEEL ANY BETTER SO I TOOK 3." PATIENT STATES THAT HE CAME TO THE ER LATER THAT NIGHT. MANUAL BLOOD PRESSURE OBTAINED. SEE FLOW CHART. IV TO THE LEFT HAND IS PATENT. CALL LIGHT IN REACH.
[2019-04-27 19:56] VITALS: BP 80/37
[2019-04-27 23:22] VITALS: BP 92/60
[2019-04-28] VITALS: BP 110/60
--- NOTE | 2019-04-28 06:00 | NUR ---
MANUAL BLOOD PRESSURE OBTAINED 105/58
[2019-04-28 06:09] VITALS: BP 105/58
[2019-04-28 06:44] LABS: BASOPHILS 0.1 % (0-2); HEMATOCRIT 30.9 % (42.0-54.0); HEMOGLOBIN 9.9 g/dL (13.5-17.5); IMMATURE GRANULOCYTES 0.6 % (0-5); MCH 21.7 pg (26.0-34.0); MCV 67.8 fL (80.0-100.0); MEAN PLATELET VOLUME 10.3 fL (7.4-10.4); MONOCYTES 5.9 % (2-11); NEUTROPHILS 83.4 % (40-80); RBC 4.56 10x6/uL (4.20-6.10); RDW 14.8 % (11.5-14.5); WBC 15.4 10x3/uL (4.8-10.8)
[2019-04-28 06:46] LABS: PLATELET COUNT 371 10x3/uL (130-400)
[2019-04-28 07:05] LABS: ALBUMIN 2.5 g/dL (3.4-5.0); BILIRUBIN - TOTAL 2.16 mg/dL (0.2-1.3); CALCIUM 7.4 mg/dL (8.5-10.1); PROTEIN - SERUM 5.5 g/dL (6.4-8.2)
[2019-04-28 07:07] LABS: ANION GAP 10.8 mmol/L (8-16); CARBON DIOXIDE 25.6 mmol/L (21.0-32.0); POTASSIUM - SERUM 3.4 mmol/L (3.5-5.1)
[2019-04-28 07:47] VITALS: BP 87/53
--- NOTE | 2019-04-28 09:53 | NUR ---
ALERT AND ORIENTED X4. LUNGS CTA AND HRRR. NO PERIPHERAL EDEMA NOTED. IVF INFUSING LT. HAND PAT PRESCRIBED RATE BS NOTED X4. PT DENIES ANY PAIN OR DISCOMFORT AT THIS TIME. ENCOURAGED TO USE CALL LIGHT FOR ASSIST. WITH POTASSIUM GIVEN POR ELECTROLYTE PROTOCOL.
--- NOTE | 2019-04-28 10:48 | CN ---
PATIENT NAME:WM CABAN MEDICAL RECORD: [id number] : 82 LOCATION:D.[facility] [place] ADMIT DATE: 04/26/19 ACCOUNT: [id number] CONSULTING PHYSICIAN: JAMEEL FIGUEROA MD REFERRING PHYSICIAN: GEOVANNA ROWELL MD DATE OF CONSULTATION: 04/27/2019 HISTORY OF PRESENT ILLNESS: A 38-year-old gentleman with a history of a nonischemic cardiomyopathy, history of methamphetamine and cocaine abuse in the past as well as noncompliance, admitted with pancreatitis. By his report, he actually feels better today. Breathing is at baseline with class probably with 2 to 3 symptomatology at home. He initially did not get his myopathic medications filled. He was recently in with Dobutrex drip and kept disconnecting his medications at that time due to leg cramps and inability to walk as he wished. Currently dyspnea is at baseline. Pancreatic enzymes are trending down. We are asked to see him concerning his cardiovascular status. PAST MEDICAL HISTORY: Includes; 1. History of cardiomyopathy. 2. Crohn's disease. ALLERGIES: PEN-V, REMICADE. MEDICATIONS: Typically include Entresto 24/26 one b.i.d., carvedilol 6.25 b.i.d., Lasix 40 every day, potassium supplementation. SOCIAL HISTORY: Currently still smokes E-cigarettes. Previous history of meth and cocaine abuse as described above. Does report intermittent binge drinking. No set exercise program. REVIEW OF SYSTEMS: The patient reports easy bruising but reports no swollen glands. The patient reports no fever, no night sweats, no significant weight gain, no significant weight loss. No significant exercise tolerance. The patient reports no dry eyes, no irritation, no vision change. Patient reports no difficulty hearing and no ear pain. Patient reports no frequent nose bleeds or nose and sinus problems. Patient reports on arm pain on exertion. No shortness of breath while lying down. No history of heart murmur. Patient reports no cough, no wheezing or coughing up blood. Patient reports no abdominal pain, no vomiting. Normal appetite. No diarrhea and not vomiting blood. No nausea and no constipation. Patient reports no incontinence. No difficulty urinating. No hematuria. No increased frequency. Patient reports no muscle aches. No weakness, no arthralgias, no back pain. No swelling of the extremities. Patient reports no abnormal mole, no jaundice, no rashes. Reports no loss of consciousness. No weakness and no numbness. No seizures, dizziness, or headaches. The patient reports no depression, no sleep disturbance, feeling safe in a relationship and no alcohol abuse. Patient reports on fatigue. Reports no runny nose or sinus pressure. No itching, no hives, and no frequent sneezing. PHYSICAL EXAMINATION: GENERAL: Well-developed, well-nourished, in no acute distress currently. VITAL SIGNS: Blood pressure 114/42, pulse 88 and regular. HEENT: Normocephalic, atraumatic. NECK: No bruits noted. HEART: Regular. S3 gallop. A II/ systolic ejection murmur. CONSULT REPORT [id number] WM CABAN LUNGS: Fairly good air excursion. ABDOMEN: Soft, nontender. EXTREMITIES: Pulses are 2+. There is no edema. NEUROLOGIC: Grossly intact. IMPRESSION: Suspect cardiac enzymes are elevated secondary to the renal insufficiency, decreased clearance could be exacerbated somewhat by his myopathic standpoint. Will obviously need to be on cardiomyopathic meds. Repeat echo in 90 days to see if device therapy is indicated. Further recommendations based on clinical course. TRANSINT:[id number] Voice Confirmation ID: [id number] DOCUMENT ID: [id number] JAMEEL FIGUEROA MD at 1048 CC: [id number] DICTATION DATE: 04/27/19 1200 SWEATER OPERATOR: 04/27/19 1439 ADM IN [facility] [id number] [place] [address]
[2019-04-28 11:00] VITALS: BP 90/64
[2019-04-28 13:06] VITALS: BP 92/60
--- NOTE | 2019-04-28 15:42 | NUR ---
PT ABDOMEN DISTENDED WITH BS NOTED COMPLAINTS OF ABDOMINAL PAIN. BOILER TUBE BLOWER NOTIFIED OF CONDITION.BS NOTED X4.
[2019-04-28 17:10] VITALS: BP 88/60
--- NOTE | 2019-04-28 20:00 | NUR ---
ALERT SITTING UP IN BED, DENIES PAIN, SEE SHIFT ASSESSMENT, CALL LIGHT IN REAC
[2019-04-29 01:42] VITALS: BP 100/80
[2019-04-29 05:33] LABS: BASOPHILS 0.2 % (0-2); EOSINOPHILS 1.4 % (0-7); HEMATOCRIT 29.7 % (42.0-54.0); HEMOGLOBIN 9.3 g/dL (13.5-17.5); IMMATURE GRANULOCYTES 1.4 % (0-5); LYMPHOCYTES 12.4 % (15-50); MCH 21.5 pg (26.0-34.0); MCHC 31.3 g/dL (31.0-37.0); MCV 68.8 fL (80.0-100.0); MEAN PLATELET VOLUME 10.6 fL (7.4-10.4); MONOCYTES 9.4 % (2-11); NEUTROPHILS 75.2 % (40-80); RBC 4.32 10x6/uL (4.20-6.10); RDW 14.6 % (11.5-14.5); WBC 11.8 10x3/uL (4.8-10.8)
[2019-04-29 05:34] LABS: PLATELET COUNT 295 10x3/uL (130-400)
[2019-04-29 06:12] LABS: ALBUMIN 2.5 g/dL (3.4-5.0); ANION GAP 12.7 mmol/L (8-16); BILIRUBIN - TOTAL 1.39 mg/dL (0.2-1.3); CARBON DIOXIDE 24.6 mmol/L (21.0-32.0); CREATININE - SERUM 1.5 mg/dL (0.6-1.3); POTASSIUM - SERUM 3.3 mmol/L (3.5-5.1); PROTEIN - SERUM 5.7 g/dL (6.4-8.2)
[2019-04-29 06:38] LABS: CALCIUM 7.1 mg/dL (8.5-10.1)
[2019-04-29 09:11] VITALS: BP 100/67
--- NOTE | 2019-04-29 13:11 | MORECARE ---
CASE MANAGEMENT DISCHARGE SUMMARY PATIENT: WM MARTINEZ UNIT: [id number] ADM DATE: 04/26/19 AGE: 38 : [birth year] SEX: M ROOM/BED: D.2227 AUTHOR: CAITLIN MIDDLETON PHYSICIAN: REFERRING PHYSICIAN: GEOVANNA ROWELL MD DATE OF SERVICE: 04/29/19 Discharge Plan Patient Name: WM MARTINEZ Facility: [facility]:[place] : 1980 Planned Disposition: Home Anticipated Discharge Date: 04/29/19 Discharge Date: Expected LOS: 3 Initial Reviewer: [email or web address] Initial Review Date: 04/26/2019 Generated: 04/29/19 2:11 pm Comments DCP- Discharge Planning Updated by [email or web address]: Madyson Allan on 04/29/19 12:[address] Late Entry: Addendum Holly HURT visited patient in the ER. He was agitated and raised his voice as Holly was trying to ask him questions. He cussed at her and asked her "why the f&*! are you asking me all these questions" he did not lower his voice at time. CM requested the nurse call security to stand outside of the room until Holly completed her assessment. Patient finally calmed down, lowering his voice after security was called. Salesperson Florist Supplies: Mindi Bruno RN, [facility] DCP- Discharge Planning Updated by [email or web address]: Mindi Bruno on 04/26/19 8:[address] Patient Name: WM MARTINEZ Admission Status: ER Accout number: [id number] Admission Date: 04-26-2019 : 1980 Admission Diagnosis: Attending: GEOVANNA ROWELL Current LOS: 1 Anticipated DC Date: 04-29-2019 Planned Disposition: Home Primary Insurance: MEDICAID [place] Discharge Planning Comments: CM met with patient to complete initial dc planning assessment. CM educated patient on the CM role and verbal consent given by patient to complete assessment. CM verified patient's address, phone number, and emergency contact phone numbers. Patient lives at home alone and reports he is independent in his care at home. At discharge patient plans to return home alone and feels this is a safe discharge. CM discussed availability of home health, rehab services, and medical equipment. Patient denied known discharge needs at this time. Patient reports his ex- Clau will transport him/her home at time of discharge. CM will continue to follow and will assist as needed with dc plans/needs. Salesperson Florist Supplies: Mindi Bruno RN, [facility] DCPIA - Discharge Planning Initial Assessment Updated by [email or web address]: Mindi Bruno on 04/26/19 9:29 am * Is the patient Alert and Oriented? Yes * How many steps to enter\\exit or inside your home? * PCP Dr. Mahoney * Pharmacy [facility] * Preadmission Environment Home Alone * ADLs Independent * Equipment None * List name and contact numbers for known caregivers / representatives who currently or will assist patient after discharge: Clau Martinez - ex - [phone] * Verbal permission to speak to the caregivers and representatives has been obtained from the patient. Yes * Community resources currently utilized None * Additional services required to return to the preadmission environment? No * Can the patient safely return to the preadmission environment? Yes * Has this patient been hospitalized within the prior 30 days at any hospital? Yes Last DP export: 04/26/19 9:38 am Patient Name: WM MARTINEZ Page 17317 at 1311 All edits/amendments must be made on the electronic document DICTATION DATE: 04/29/191310 TECHNOLOGY ADMINISTRATOR: JASMEET 04/29/191310 RPT#: [id number] DC DATE: STATUS: ADM IN [facility] [address] [place] [address] END OF REPORT
[2019-04-29 13:29] VITALS: BP 92/52
--- NOTE | 2019-04-29 14:40 | NUR ---
NUTRITION F/U CHART REVIEWED, PT CURRENTLY IN ISOLATION. GOOD INTAKE RECENT MEALS. WILL CONTINUE TO HONOR FOOD PREFERENCES, MONITOR PO INTAKE. RD FOLLOWING
[2019-04-29 17:30] VITALS: BP 142/114
--- NOTE | 2019-04-29 20:00 | NUR ---
PT JERKS IN PAIN WHEN ATTEMPTING TO FLUSH IV. GENERALIZED SWEELING NOTED, PT REPORTS HE FEELS SO SWOLLEN, HE DOES NOT WANT TO BE CONNECTED TO FLUIDS. INFORMED PT HE WILL NEED A NEW IV, PT VERBALIZED UNDERSTANDING, BUT REQUESTS TO GET SOME REST FIRST.
[2019-04-29 21:13] VITALS: BP 112/52
[2019-04-30 01:24] VITALS: BP 101/69
--- NOTE | 2019-04-30 03:10 | NUR ---
I have reviewed this patient and I concur with the Shift Assessment completed by the Licensed Practical Nurse today this shift.
[2019-04-30 04:00] VITALS: BP 100/60
--- NOTE | 2019-04-30 07:20 | NUR ---
INITIAL ROUNDING, WHITE BOARD UPDATED. PATIENT IS AWAKE AND SITTING UP IN THE BEDSIDE CHAIR, REPORTS PAIN OF 7/10 IN THE ABD. NO IVF INFUSING, HE REFUSES, STATES "I AM FILLING UP WITH FLUID". NO SCD'S ON, HE IS OOB. ON ROOM AIR. CALL LIGHT IN REACH
[2019-04-30 07:53] LABS: BASOPHILS 0.3 % (0-2); EOSINOPHILS 1.6 % (0-7); HEMATOCRIT 28.6 % (42.0-54.0); IMMATURE GRANULOCYTES 1.3 % (0-5); LYMPHOCYTES 12.3 % (15-50); MCH 22.1 pg (26.0-34.0); MCHC 31.5 g/dL (31.0-37.0); MCV 70.1 fL (80.0-100.0); MEAN PLATELET VOLUME 10.8 fL (7.4-10.4); MONOCYTES 8.8 % (2-11); NEUTROPHILS 75.7 % (40-80); PLATELET COUNT 262 10x3/uL (130-400); RBC 4.08 10x6/uL (4.20-6.10); RDW 15.1 % (11.5-14.5); WBC 10.1 10x3/uL (4.8-10.8)
[2019-04-30 08:11] LABS: ALBUMIN 2.5 g/dL (3.4-5.0); ANION GAP 13.2 mmol/L (8-16); BILIRUBIN - TOTAL 0.98 mg/dL (0.2-1.3); CALCIUM 7.4 mg/dL (8.5-10.1); CARBON DIOXIDE 24.2 mmol/L (21.0-32.0); CREATININE - SERUM 1.5 mg/dL (0.6-1.3); POTASSIUM - SERUM 3.4 mmol/L (3.5-5.1); PROTEIN - SERUM 5.7 g/dL (6.4-8.2)
--- NOTE | 2019-04-30 09:00 | NUR ---
ORDER IS FOR NS AT 50 ML/ HR AND PATIENT IS REFUSING, STATES "NO WAY, I AM GOING TO EXPLODE, I NEED LASIX"
--- NOTE | 2019-04-30 09:16 | NUR ---
CALLED 1387 AND SPOKE WITH HERMILA HARRELL FOR DR FINNEGAN. REPORTED TO THE BOARD STACKER THE PATEINTS CONCERN OF NOT HAVING HIS LASIX DAILY, THAT HE HAS 'BEEN ASKING FOR IT SINCE HE CAME" AND THE FACT HE IS SLIGHTLY SOB AND SWOLLEN. SHARRI GAVE VERBAL ORDER FOR A CHEST XRAY AND STATED SHE WILL RESTART HIS HOME LASIX DOSE.
--- NOTE | 2019-04-30 09:20 | NUR ---
SHARRI CALLED BACK TO REPORT "SHE COULD NOT CONTINUE THE HOME LASIX, THAT THIS NURSE TO PUT IN ORDER FOR 40 DAILY" AND TO CALL HI AND REPORT THE PROBLEM BECAUSE THIS HAS HAPPENED BEFORE.
[2019-04-30 09:30] VITALS: BP 93/54
[2019-04-30 13:32] VITALS: BP 126/71
[2019-04-30 17:19] VITALS: BP 120/84
[2019-04-30 21:47] VITALS: BP 111/67
[2019-05-01] VITALS (8 sets, daily range): BP systolic 96–126; BP diastolic 54–74
--- NOTE | 2019-05-01 02:30 | NUR ---
PT STATES HE NEEDS AT DRs NOTE BECAUSE HE WILL BE MISSING HIS COURTDATE WHILE IN THE HOSPITAL. INFORMED I WILL PASS THIS IN REPORT. ALSO REPORTS A NAGGING PAIN IN SCROTUM DUE TO SWELLING. REQUESTS PRN TYLENOL.
[2019-05-01 07:41] LABS: BASOPHILS 0.2 % (0-2); EOSINOPHILS 1.7 % (0-7); HEMATOCRIT 28.2 % (42.0-54.0); HEMOGLOBIN 8.7 g/dL (13.5-17.5); IMMATURE GRANULOCYTES 1.3 % (0-5); LYMPHOCYTES 12.3 % (15-50); MCH 22.2 pg (26.0-34.0); MCHC 30.9 g/dL (31.0-37.0); MCV 71.9 fL (80.0-100.0); MONOCYTES 7.8 % (2-11); NEUTROPHILS 76.7 % (40-80); PLATELET COUNT 256 10x3/uL (130-400); RBC 3.92 10x6/uL (4.20-6.10); RDW 16.2 % (11.5-14.5)
[2019-05-01 07:54] LABS: ALBUMIN 2.5 g/dL (3.4-5.0); ANION GAP 13.3 mmol/L (8-16); BILIRUBIN - TOTAL 0.66 mg/dL (0.2-1.3); CALCIUM 7.6 mg/dL (8.5-10.1); CARBON DIOXIDE 23.4 mmol/L (21.0-32.0); CREATININE - SERUM 1.3 mg/dL (0.6-1.3); POTASSIUM - SERUM 3.7 mmol/L (3.5-5.1)
--- NOTE | 2019-05-01 08:08 | NUR ---
PT IS STANDING IN ROOM. PT IS AAO X 4. PT REPORTS DISCOMFORT TO SCROTAL AREA. SCROTUM IS VERY EDEMATOUS AND RED. PT DENIES PRESENCE OF CONSTANT PAIN IN SCROTAL AREA, BUT REPORTS DISCOMFORT WITH WALKING/LAYNG/SITTING. PT WITH EDEMA TO BILATERAL LOWER EXTREMITIES 4+. CAP REFILL <3. PT REPORTS NUMBNESS FEELING TO TOP OF FEET UPON PALPATION. ABDOMEN IS DISTENDED. BS ACTIVE X 4 QUADRANTS. CONTACT ISOLATION PRECAUTIONS IN PLACE. BED IS IN THE LOWEST POSITION. CALL LIGHT AND BEDSIDE TABLE ARE WITHIN REACH. SIDE RAILS X 2. PT DENIES FURTHER NEEDS. WILL CONT TO MONITOR.
--- NOTE | 2019-05-01 19:30 | NUR ---
PT SITTING UP IN BED WITHOUT DISTRESS, ALERT AND ORIENTED. +4 EDEMA TO BILAT LOWER EXT, PROPPED ON PILLOWS. SCROTUM EDEMATOUS AND RED. REFUSING IVF AT THIS TIME, STATES HE HAS TOO MUCH FLUID ON HIM ALREADY. IV LEFT HAND SL. HR 96 SR PER TELE. CONTACT ISOLATION IN PLACE. DENIES NEEDS. CL IN REACH, WILL CTM
[2019-05-02] VITALS: BP 90/69
[2019-05-02 04:00] VITALS: BP 97/64
[2019-05-02 06:57] LABS: ALBUMIN 2.7 g/dL (3.4-5.0); BASOPHILS 0.4 % (0-2); BILIRUBIN - TOTAL 0.64 mg/dL (0.2-1.3); CALCIUM 8.3 mg/dL (8.5-10.1); CARBON DIOXIDE 23.9 mmol/L (21.0-32.0); CREATININE - SERUM 1.5 mg/dL (0.6-1.3); EOSINOPHILS 1.7 % (0-7); HEMATOCRIT 31.2 % (42.0-54.0); HEMOGLOBIN 9.5 g/dL (13.5-17.5); IMMATURE GRANULOCYTES 1.3 % (0-5); LYMPHOCYTES 15.5 % (15-50); MCH 22.3 pg (26.0-34.0); MCHC 30.4 g/dL (31.0-37.0); MCV 73.2 fL (80.0-100.0); MEAN PLATELET VOLUME 10.7 fL (7.4-10.4); MONOCYTES 8.5 % (2-11); NEUTROPHILS 72.6 % (40-80); PLATELET COUNT 319 10x3/uL (130-400); PROTEIN - SERUM 6.4 g/dL (6.4-8.2); RBC 4.26 10x6/uL (4.20-6.10); RDW 17.7 % (11.5-14.5); WBC 9.5 10x3/uL (4.8-10.8)
[2019-05-02 06:59] LABS: ANION GAP 14.5 mmol/L (8-16); POTASSIUM - SERUM 4.4 mmol/L (3.5-5.1)
[2019-05-02 09:48] VITALS: BP 107/68
[2019-05-02 10:02] LABS: AMYLASE - SERUM 182 U/L (25-115); LIPASE 525 U/L (73-393)
--- NOTE | 2019-05-02 10:20 | NUR ---
TELEMETRY RUNNING AT [address]. CL IN [facility]
[2019-05-02 13:19] VITALS: BP 104/68
--- NOTE | 2019-05-02 13:48 | NUR ---
Nutrition Follow Up: Chart reviewed. Pt is tolerating regular diet. BM: 05/02/19 Labs reviewed Meds noted including Lasix Rec continue current diet. RD following.
[2019-05-02 16:44] VITALS: BP 97/62
--- NOTE | 2019-05-02 20:00 | NUR ---
PT SITTING UP ON SIDE OF BED, WITHOUT DISTRESS. FAMILY AT BEDSIDE. REFUSES IV FLUIDS AT THIS TIME. RIGHT WRIST SL. HR 104 ST PER TELE. +4 EDEMA TO LOWER EXT, GENERALIZED EDEMA TO UPPER EXT. ABD DISTENDED BUT SOFT. DENIES NEEDS AT THIS TIME. CL IN REACH, WILL CTM
[2019-05-02 21:58] VITALS: BP 114/65
[2019-05-03 01:37] VITALS: BP 124/60
[2019-05-03 05:37] VITALS: BP 107/73
[2019-05-03 08:06] LABS: BASOPHILS 0.3 % (0-2); EOSINOPHILS 1.6 % (0-7); HEMATOCRIT 30.3 % (42.0-54.0); HEMOGLOBIN 9.4 g/dL (13.5-17.5); IMMATURE GRANULOCYTES 0.7 % (0-5); LYMPHOCYTES 16.8 % (15-50); MCH 22.5 pg (26.0-34.0); MCV 72.7 fL (80.0-100.0); MEAN PLATELET VOLUME 10.3 fL (7.4-10.4); MONOCYTES 6.6 % (2-11); PLATELET COUNT 260 10x3/uL (130-400); RBC 4.17 10x6/uL (4.20-6.10); RDW 18.8 % (11.5-14.5); WBC 7.3 10x3/uL (4.8-10.8)
[2019-05-03 08:27] LABS: ALBUMIN 2.8 g/dL (3.4-5.0); ANION GAP 11.9 mmol/L (8-16); BILIRUBIN - TOTAL 1.1 mg/dL (0.2-1.3); CALCIUM 8.5 mg/dL (8.5-10.1); CARBON DIOXIDE 25.9 mmol/L (21.0-32.0); CREATININE - SERUM 1.5 mg/dL (0.6-1.3); POTASSIUM - SERUM 3.8 mmol/L (3.5-5.1); PROTEIN - SERUM 6.5 g/dL (6.4-8.2)
--- NOTE | 2019-05-03 09:00 | NUR ---
ALERT AND ORIENTED AMBULATING IN ROOM. EDEMA 4+ TO BLE. LUNGS CTA AND HRRR. ABDOMEN SOFT WITH BS NOTED W/O TENDERNESS ON PALPATION. TELEMETRY INTACT. DENIES ANY PAIN TO BLE AT THIS TIME. ENCOURAGED TO USE CALL LIGHT FOR ASSIST.
[2019-05-03 09:51] VITALS: BP 101/62
[2019-05-03 12:00] VITALS: BP 108/74
[2019-05-03 16:51] VITALS: BP 75/45
--- NOTE | 2019-05-03 19:15 | NUR ---
RECEIVED CARE FROM DAY NURSE. SITTING UP ON SIDE OF BED. REPORTS NO NEEDS AT THIS TIME. CALL LIGHT AT SIDE. IV SL TO LEFT INNER WRIST.
[2019-05-04] VITALS: BP 110/75
--- NOTE | 2019-05-04 00:23 | NUR ---
IV TO LEFT INNER WRIST WITH GOOD BLOOD RETURN. REPORTS IT IS TOO PAINFUL TO KEEP IN. AWARE HE IS A HARD STICK. IV DC'D WITH TIP INTACT. WILL RESTITE IN AM.
--- NOTE | 2019-05-04 03:44 | NUR ---
I have reviewed this patient and I concur with the Shift Assessment completed by the Licensed Practical Nurse today this shift.
[2019-05-04 04:00] VITALS: BP 109/67
--- NOTE | 2019-05-04 04:50 | NUR ---
IV SITED TO RIGHT FA. 22 GAUGE X2 STICKS WITH GOOD BLOOD RETURN NOTED.
[2019-05-04 05:49] LABS: BASOPHILS 0.3 % (0-2); HEMATOCRIT 33.1 % (42.0-54.0); HEMOGLOBIN 10.2 g/dL (13.5-17.5); IMMATURE GRANULOCYTES 0.7 % (0-5); LYMPHOCYTES 15.6 % (15-50); MCH 22.6 pg (26.0-34.0); MCHC 30.8 g/dL (31.0-37.0); MCV 73.2 fL (80.0-100.0); MEAN PLATELET VOLUME 10.3 fL (7.4-10.4); MONOCYTES 6.5 % (2-11); NEUTROPHILS 75.9 % (40-80); RBC 4.52 10x6/uL (4.20-6.10)
[2019-05-04 05:52] LABS: PLATELET COUNT 375 10x3/uL (130-400); WBC 12.9 10x3/uL (4.8-10.8)
[2019-05-04 06:27] LABS: ALBUMIN 3.1 g/dL (3.4-5.0); ANION GAP 15.6 mmol/L (8-16); BILIRUBIN - TOTAL 1.16 mg/dL (0.2-1.3); CALCIUM 8.7 mg/dL (8.5-10.1); CARBON DIOXIDE 23.5 mmol/L (21.0-32.0); CREATININE - SERUM 1.7 mg/dL (0.6-1.3); POTASSIUM - SERUM 4.1 mmol/L (3.5-5.1); PROTEIN - SERUM 6.9 g/dL (6.4-8.2)
--- NOTE | 2019-05-04 09:00 | NUR ---
ALERT AND ORIENTED STANDING BESIDE BED. EDEMA 4+ NOTED TO BLE. ENCOURAGED TO KEEP LEGS ELEVATED TO DECREASE EDEMA. LEGS WEEPING TO BLE. SCROTAL EDEMA NOTED WELL. RESP EVEN AND UNLABORED.ENCOURAGED TO USE CALL LIGHT FOR ASSIST.
[2019-05-04 09:29] VITALS: BP 110/79
[2019-05-04 13:50] VITALS: BP 96/56
[2019-05-04 17:52] VITALS: BP 99/63
--- NOTE | 2019-05-04 19:15 | NUR ---
RECEIVED CARE FROM DAY NURSE. SITTING UP IN BED WATCHING TV. IV INFUSING IRON TO RIGHT FA PER ORDER. CALL LIGHT AT SIDE. NO NEEDS VOICED AT THIS TIME.
[2019-05-04 20:17] VITALS: BP 95/75
[2019-05-05 04:00] VITALS: BP 98/60
[2019-05-05 06:34] LABS: BASOPHILS 0.3 % (0-2); EOSINOPHILS 0.9 % (0-7); HEMATOCRIT 31.5 % (42.0-54.0); HEMOGLOBIN 9.9 g/dL (13.5-17.5); IMMATURE GRANULOCYTES 0.6 % (0-5); LYMPHOCYTES 19.1 % (15-50); MCH 22.8 pg (26.0-34.0); MCHC 31.4 g/dL (31.0-37.0); MCV 72.4 fL (80.0-100.0); MEAN PLATELET VOLUME 9.9 fL (7.4-10.4); MONOCYTES 7.4 % (2-11); NEUTROPHILS 71.7 % (40-80); PLATELET COUNT 324 10x3/uL (130-400); RBC 4.35 10x6/uL (4.20-6.10); RDW 20.4 % (11.5-14.5); WBC 10.9 10x3/uL (4.8-10.8)
[2019-05-05 06:50] LABS: ANION GAP 14.8 mmol/L (8-16); BILIRUBIN - TOTAL 1.71 mg/dL (0.2-1.3); CALCIUM 8.3 mg/dL (8.5-10.1); CARBON DIOXIDE 23.1 mmol/L (21.0-32.0); CREATININE - SERUM 1.7 mg/dL (0.6-1.3); POTASSIUM - SERUM 3.9 mmol/L (3.5-5.1); PROTEIN - SERUM 6.7 g/dL (6.4-8.2)
--- NOTE | 2019-05-05 09:00 | NUR ---
ALERT AND ORIENTED X4 WITH EDEMA 4+ TO BLE WITH WEEPNG NOTED TO BLE. LUNGS CTA AND HRRR. TELEMETRY INTACT. SCROTAL EDEMA NOTED WELL AND STATES IS STILL ABLE TO VOID. ENCOURAGED TO KEEP FEET ELEVATED TO DECREASE EDEMA AND VERBAQLIZED UNDERSTANDING. ENCOURAGED TO USE CALL LIGHT FOR ASSIST.
[2019-05-05 09:17] VITALS: BP 109/66
[2019-05-05 13:07] VITALS: BP 108/55
[2019-05-05] MEDS ORDERED: Nicoderm [PBKC] TRANSDERM (15:02)
[2019-05-05] MEDS ORDERED: LASIX40 MG PO (15:03)
--- NOTE | 2019-05-05 16:11 | MORECARE ---
CASE MANAGEMENT DISCHARGE SUMMARY PATIENT: WM MARTINEZ UNIT: [id number] ADM DATE: 04/26/19 AGE: 38 : [birth year] SEX: M ROOM/BED: D.2227 AUTHOR: CAITLIN MIDDLETON PHYSICIAN: REFERRING PHYSICIAN: GEOVANNA ROWELL MD DATE OF SERVICE: 05/05/19 Discharge Plan Patient Name: WM MARTINEZ Facility: [facility]:[place] : 1980 Planned Disposition: Home Anticipated Discharge Date: 04/29/19 Discharge Date: Expected LOS: 3 Initial Reviewer: [email or web address] Initial Review Date: 04/26/2019 Generated: 05/05/19 5:10 pm Comments DCP- Discharge Planning Updated by [email or web address]: Loren Reid on 05/05/19 3:[address] Patient Name: WM MARTINEZ Admission Status: ER Accout number: [id number] Admission Date: 04-26-2019 : 1980 Admission Diagnosis:ACUTE PANCREATITIS WITHOUT NECROSIS OR INFECTION, UNSP Attending: GEOVANNA ROWELL Current LOS: 9 Anticipated DC Date: 04-29-2019 Planned Disposition: Home Primary Insurance: MEDICAID [place] Discharge Planning Comments: spoke to pt about HH services. He will have House call services already. Pt states he does not know why he needs more people seeing him. Pt refused HH services. Laborer Sawmill: Loren Reid DCP- Discharge Planning Updated by [email or web address]: Madyson Allan on 04/29/19 12:[address] Late Entry: Addendum Holly HURT visited patient in the ER. He was agitated and raised his voice as Holly was trying to ask him questions. He cussed at her and asked her "why the f&*! are you asking me all these questions" he did not lower his voice at time. CM requested the nurse call security to stand outside of the room until Holly completed her assessment. Patient finally calmed down, lowering his voice after security was called. Laborer Sawmill: Mindi Bruno RN, [facility] DCP- Discharge Planning Updated by [email or web address]: Mindi Bruno on 04/26/19 8:[address] Patient Name: WM MARTINEZ Admission Status: ER Accout number: [id number] Admission Date: 04-26-2019 : 1980 Admission Diagnosis: Attending: GEOVANNA ROWELL Current LOS: 1 Anticipated DC Date: 04-29-2019 Planned Disposition: Home Primary Insurance: MEDICAID [place] Discharge Planning Comments: CM met with patient to complete initial dc planning assessment. CM educated patient on the CM role and verbal consent given by patient to complete assessment. CM verified patient's address, phone number, and emergency contact phone numbers. Patient lives at home alone and reports he is independent in his care at home. At discharge patient plans to return home alone and feels this is a safe discharge. CM discussed availability of home health, rehab services, and medical equipment. Patient denied known discharge needs at this time. Patient reports his ex- Clau will transport him/her home at time of discharge. CM will continue to follow and will assist as needed with dc plans/needs. Laborer Sawmill: Mnidi Bruno RN, [facility] DCPIA - Discharge Planning Initial Assessment Updated by [email or web address]: Mindi Bruno on 04/26/19 9:29 am * Is the patient Alert and Oriented? Yes * How many steps to enter\\exit or inside your home? * PCP Dr. Mhaoney * Pharmacy [facility] * Preadmission Environment Home Alone * ADLs Independent * Equipment None * List name and contact numbers for known caregivers / representatives who currently or will assist patient after discharge: Clau Martinez - ex - [phone] * Verbal permission to speak to the caregivers and representatives has been obtained from the patient. Yes * Community resources currently utilized None * Additional services required to return to the preadmission environment? No * Can the patient safely return to the preadmission environment? Yes * Has this patient been hospitalized within the prior 30 days at any hospital? Yes Last DP export: 04/29/19 12:11 pm Patient Name: WM MARTINEZ Page [id number] at 1611 All edits/amendments must be made on the electronic document DICTATION DATE: 05/05/19 161 DATASTAGE ARCHITECT: JASMEET 05/05/191609 RPT#: [id number] DC DATE: STATUS: ADM IN [facility] [address] [place] [address] END OF REPORT
--- NOTE | 2019-05-06 17:10 | MORECARE ---
CASE MANAGEMENT DISCHARGE SUMMARY PATIENT: WM MARTINEZ UNIT: [id number] ADM DATE: 04/26/19 AGE: 38 : 82 SEX: M ROOM/BED: D.2227 AUTHOR: CAITLIN MIDDLETON PHYSICIAN: REFERRING PHYSICIAN: GEOVANNA ROWELL MD DATE OF SERVICE: 05/06/19 Discharge Plan Patient Name: WM MARTINEZ Facility: [facility]:[place] : 1980 Planned Disposition: Home Anticipated Discharge Date: 04/29/19 Discharge Date: 05/05/2019 Expected LOS: 3 Initial Reviewer: [email or web address] Initial Review Date: 04/26/2019 Generated: 05/06/19 6:09 pm Comments DCP- Discharge Planning Updated by [email or web address]: Loren Reid on 05/05/19 3:[address] Patient Name: WM MARTINEZ Admission Status: ER Accout number: [id number] Admission Date: 04-26-2019 : 1980 Admission Diagnosis:ACUTE PANCREATITIS WITHOUT NECROSIS OR INFECTION, UNSP Attending: GEOVANNA ROWELL Current LOS: 9 Anticipated DC Date: 04-29-2019 Planned Disposition: Home Primary Insurance: MEDICAID [place] Discharge Planning Comments: spoke to pt about HH services. He will have House call services already. Pt states he does not know why he needs more people seeing him. Pt refused HH services. Shaker Washer: Loren Reid DCP- Discharge Planning Updated by [email or web address]: Madyson Allan on 04/29/19 12:[address] Late Entry: Addendum Holly HURT visited patient in the ER. He was agitated and raised his voice as Holly was trying to ask him questions. He cussed at her and asked her "why the f&*! are you asking me all these questions" he did not lower his voice at time. CM requested the nurse call security to stand outside of the room until Holly completed her assessment. Patient finally calmed down, lowering his voice after security was called. Shaker Washer: Mindi Bruno RN, [facility] DCP- Discharge Planning Updated by [email or web address]: Mindi Bruno on 04/26/19 8:[address] Patient Name: WM MARTINEZ Admission Status: ER Accout number: [id number] Admission Date: 04-26-2019 : 1980 Admission Diagnosis: Attending: GEOVANNA ROWELL Current LOS: 1 Anticipated DC Date: 04-29-2019 Planned Disposition: Home Primary Insurance: MEDICAID [place] Discharge Planning Comments: CM met with patient to complete initial dc planning assessment. CM educated patient on the CM role and verbal consent given by patient to complete assessment. CM verified patient's address, phone number, and emergency contact phone numbers. Patient lives at home alone and reports he is independent in his care at home. At discharge patient plans to return home alone and feels this is a safe discharge. CM discussed availability of home health, rehab services, and medical equipment. Patient denied known discharge needs at this time. Patient reports his ex- Clau will transport him/her home at time of discharge. CM will continue to follow and will assist as needed with dc plans/needs. Shaker Washer: Mindi Bruno RN, [facility] DCPIA - Discharge Planning Initial Assessment Updated by [id number]: Mindi Bruno on 04/26/19 9:29 am * Is the patient Alert and Oriented? Yes * How many steps to enter\\exit or inside your home? * PCP Dr. Mahoney * Pharmacy [facility] * Preadmission Environment Home Alone * ADLs Independent * Equipment None * List name and contact numbers for known caregivers / representatives who currently or will assist patient after discharge: Clau Martinez - ex - [phone] * Verbal permission to speak to the caregivers and representatives has been obtained from the patient. Yes * Community resources currently utilized None * Additional services required to return to the preadmission environment? No * Can the patient safely return to the preadmission environment? Yes * Has this patient been hospitalized within the prior 30 days at any hospital? Yes Last DP export: 05/05/19 3:10 p Patient Name: WM MARTINEZ Page [id number] at 1710 All edits/amendments must be made on the electronic document DICTATION DATE: 05/06/191708 CAFETERIA AIDE: JASMEET 05/06/191708 RPT#: [id number] DC DATE:05/05/19 STATUS: DIS IN [facility] [address] [place] [address] END OF REPORT
== END 2019-05-05 18:58 | disposition home or self-care (01) | DRG 438 ==
LOC: D.ER 02:55 → D.MS 09:08
PROVIDERS: Emergency Medicine; Family Medicine; ADMIT Internal Medicine Nephrology; ATTEND Internal Medicine Nephrology
DX: K85.90 Acute pancreatitis without necrosis or infection, unspecified (principal); I50.23 Acute on chronic systolic (congestive) heart failure; K72.00 Acute and subacute hepatic failure without coma; N17.9 Acute kidney failure, unspecified; E87.1 Hypo-osmolality and hyponatremia; K50.90 Crohn's disease, unspecified, without complications; I42.8 Other cardiomyopathies; D64.9 Anemia, unspecified; I11.0 Hypertensive heart disease with heart failure; Z91.19 Patient's noncompliance with other medical treatment and regimen